=== PATIENT | female | born 1935 | race Two or more races ===

== ENCOUNTER 2024-03-01 11:45 | Inpatient (IN) | payer MEDICARE, MEDICAID ==
[~2024-03-01] VITALS: Ht 157.5 cm; Wt 56.3 kg
--- NOTE | 2024-03-01 12:53 | ED.PDOC ---
Pamela. trauma (HPI) HPI Comments 88 y.o female presents to the ED via EMS for a chief complaint of right sided hip pain s/p fall today. Patient reports she was getting up from bed to use the restroom, lost her balance and fell on her buttocks. Caregiver at [facility] reports hearing a loud noise in patient's room, saw her sitting on the floor and assisted her back up onto her walker. Patient was able to ambulate with that walker, dressed herself up and went to wash her hands when pain came on sudden. Caregiver emphasizes that no pain was reported when assisting patient up. Patient denies any allergies Vitals BP: 165/80 HR: 50 Temp: 97.8 F SPO2: 95% RA RR: 18 Past medical history: Dementia, anxiety, HTN, and skin cancer Past surgical history: Right hip replacement on July 2023 HPI: Poor Historian. REVIEW OF SYSTEMS: CONSTITUTIONAL: Denies acute: fever, diaphoresis, chills, generalized weakness. HEAD: Denies acute: headache, photophobia Eyes: Denies acute: Double vision, vision loss, eye pain, eye discharge. EARS: Denies acute: tinnitus, hearing loss, ear discharge, ear pain, THROAT: Denies acute: sore throat, swelling, difficulty swallowing , pain with swallowing, change in voice. NECK: Denies acute: neck pain, neck swelling, stiff neck. HEART: Denies acute : chest pain, palpitations, LUNGS: Denies acute: SOB, wheezing, cough, hemoptysis ABDOMEN: Denies acute: abdominal pain, Nausea, Vomiting, diarrhea, melena , hematemesis, hematochezia SKIN: Denies acute: rash, redness, lesions, itchiness. EXTREMITIES: Denies acute: calf pain, numbness, tingling, weakness, Denies acute: Low back pain. Neuro: Denies acute: focal neurological deficit, motor or sensory focal neurological deficit, tremors, seizure like activity, confusion, dizziness, change in mental status, loss of bowel or bladder function, cauda equina like symptoms. History of dementia : Denies acute: dysuria, hematuria, flank pain, increase in urinary frequency. PSYCH: Denies acute: hallucination, suicidal ideation, homicidal ideation. FEMALE: Denies acute: abnormal vaginal bleeding, foul odor, unusual discharge. PHYSICAL EXAM: General: Moderate acute distress, awake and alert. Head: normocephalic, atraumatic. Neck: supple, trachea is midline, no swelling. Throat: Normal phonation. Eyes:, no erythema, no purulent discharge, no proptosis, no icterus. Heart: regular bradycardia, no significant murmur appreciated. Lungs: no apparent respiratory distress, Able to speak in full sentences. No wheezing, no rhonchi, no crackles. No stridors Clear to auscultation bilaterally. Abdomen: non tender to palpation, non distended, soft, no guarding, no rebound, + bowel sounds. Neuro: Awake, Alert, oriented to name, self, situation, follows commands GCS=15. Speech is normal. Skin: no petechia, no purpura, no cyanosis, non-pale, not jaundice. Lower extremities: --trace - Pitting edema no deformity, no focal swelling, no calf TTP. Decreased range of motion of right lower extremity secondary to right hip pain. Makes eye contact. moves all four extremities. Face: no apparent facial droop. Chief Complaint: Lower Extremity Time Seen by MD: 12:34 Reviewed notes: Nurses Notes, Allergies Allergies: Coded Allergies: NO KNOWN ALLERGIES (Unverified , 03/01/24) Information Source: Patient, Relative Mode of Arrival: EMS Past Medical History PAST MEDICAL HISTORY: Anxiety, Cancer (SKIN ), Dementia, HTN Surgical History (Other): Right hip replacement [employer] History: No Pertinent [employer] History Family History Family History: Reviewed,noncontributory to illness Social History Smoker: Non-Smoker Alcohol: Denies ETOH Use Drugs: Denies Drug Use Lives In: Home Was a procedure done? Was a procedure done?: No Differential Diagnosis Multiple Trauma: Fractures, Contusion, Hematoma Neck Injury: Spinal Cord Injury X-Ray, Labs, Meds, VS Vital Signs Date Time Temp Pulse Resp B/P (MAP) Pulse Ox O2 Delivery O2 Flow Rate FiO2 03/01/24 15:30 67 13 93 Room Air* 0 03/01/24 15:30 67 13 161/68 (99) 03/01/24 15:08 180/76 03/01/24 13:01 184/88 03/01/24 12:47 Room Air* 0 03/01/24 12:47 67 22 184/88 (120) 03/01/24 11:50 97.8 50 18 165/80 (108) 95 03/01/24 11:45 68 Lab Test 03/01/24 14:36 03/01/24 13:12 Range/Units Troponin I High Sensitivity 5 5 </=34 ng/L White Blood Count 12.2 H 4.4-10.8 10^3/uL Red Blood Count 4.73 4.0-5.20 10^6/uL Hemoglobin 14.7 12.2-16.2 g/dL Hematocrit 43.5 36.0-46.0 % Mean Corpuscular Volume 92.1 80.0-100.0 fL Mean Corpuscular Hemoglobin 31.0 28.0-32.0 pg Mean Corpuscular Hemoglobin Concent 33.7 32.0-36.0 g/dL Red Cell Distribution Width 13.3 11.8-14.3 % Platelet Count 229 140-450 10^3/uL Mean Platelet Volume 9.0 6.9-10.8 fL Neutrophils (%) (Auto) 81.2 H 37.0-80.0 % Lymphocytes (%) (Auto) 12.6 10.0-50.0 % Monocytes (%) (Auto) 5.5 0.0-12.0 % Eosinophils (%) (Auto) 0.4 0.0-7.0 % Basophils (%) (Auto) 0.3 0.0-2.0 % Neutrophils # (Auto) 9.9 H 1.6-8.6 10 ^3/uL Lymphocytes # (Auto) 1.5 0.4-5.4 10 ^3/uL Monocytes # (Auto) 0.7 0-1.3 10 ^3/uL Eosinophils # (Auto) 0 0-0.8 10 ^3/uL Basophils # (Auto) 0 0-0.2 10 ^3/uL Nucleated Red Blood Cells 0.0 % Sodium Level 138 136-145 mmol/L Potassium Level 4.0 3.5-5.1 mmol/L Chloride Level 107 98-107 mmol/L Carbon Dioxide Level 23 20-31 mmol/L Anion Gap 8 5-15 Blood Urea Nitrogen 16 9-23 mg/dL Creatinine 1.05 H 0.550-1.02 mg/dL Glomerular Filtration Rate Calc 51 >90 mL/min BUN/Creatinine Ratio 15.2 10.0-20.0 Serum Glucose 115 H 74-106 mg/dL Calcium Level 9.5 8.7-10.4 mg/dL Total Bilirubin 0.4 0.2-1.0 mg/dL Aspartate Amino Transferase (AST) 17 13-40 U/L Alanine Aminotransferase (ALT) 15 7-40 U/L Alkaline Phosphatase 107 46-116 U/L Total Protein 6.6 5.7-8.2 g/dL Albumin 4.2 3.2-4.8 g/dL Current Medications Medications (Trade) Dose Ordered Sig/Devorah Route Start Time Stop Time Status Last Admin Fentanyl Citrate 100 mcg ONCE ONCE IV 03/01/24 12:45 03/01/24 12:46 DC 03/01/24 13:01 Sodium Chloride 1,000 ml @ 1,000 mls/hr Q1H ONCE IV 03/01/24 12:45 03/01/24 13:44 DC 03/01/24 12:55 Fentanyl Citrate 100 mcg ONCE ONCE IV 03/01/24 15:00 03/01/24 15:01 DC 03/01/24 15:08 [place] [address] Ph: [phone] DIAGNOSTIC IMAGING Diagnostic Imaging Report : [id number] Signed PATIENT: ZHANNA LONG ACCT: [id number] UNIT: [id number] : 1935 LOC: ER ROOM / BED: / AGE / SEX: 88 / F ADM STATUS: REG ER SERVICE 1237 ORDERING PHYSICIAN: SUKHJINDER GRIFFITH DO PROCEDURE(s): ABPL - CT AB PEL WO CON-NO ORAL OR IV REASON: fall/hip pain ORDER NUMBER(s): [id number], ACCESSION NUMBER(s): [id number] CT ABDOMEN AND PELVIS WITHOUT CONTRAST CLINICAL HISTORY: fall/hip pain TECHNIQUE: Multiple contiguous axial images of the abdomen and pelvis without intravenous contrast. The images were reformatted degenerate coronal and sagittal reconstructions. All CT scans at this medical facility are performed using dose modulation techniques as appropriate to a performed exam including the following:Automated exposure control was utilized; adjustment of the MA and/or KV according to patient size; and use of iterative reconstruction technique. Comparison: None FINDINGS: Evaluation of the abdomen and pelvis is limited without intravenous contrast. There are small bilateral renal cysts. There is no evidence of nephrolithiasis or hydronephrosis. The liver, gallbladder, pancreas, adrenal glands, and spleen appear within normal limits. There is no gross evidence of abdominal lymphadenopathy. There is no free fluid or free air. There is a moderate size hiatal hernia. The small and large bowel loops demonstrate normal caliber. There are scattered diverticula in the colon without evidence of acute diverticulitis. The abdominal aorta and IVC appear within normal limits. Evaluation of the pelvis is limited secondary to streak artifact from hardware in the right femur. Visualized bladder appears unremarkable for the degree of distention. Pelvic organ grossly appears within normal limits. There is no gross evidence of a pelvic mass. There is no free fluid collection. There is mild scars. There is cardiomegaly. The osseous structures are demineralized. There is no acute osseous abnormality. IMPRESSION: 1. There is no acute process in the abdomen and pelvis. 2. Moderate size hiatal hernia. 3. Small bilateral renal cysts. HS:Y ATED BY: CHANO JEFFRIES MD DICTATED DATE/TIME: 03/01/241429 SIGNED BY: CHANO JEFFRIES MD SIGNED DATE/TIME: 03/01/24 143 CC: [place] [address] Ph: [phone] DIAGNOSTIC IMAGING Diagnostic Imaging Report : [id number] Signed PATIENT: ZHANNA LONG ACCT: [id number] UNIT: [id number] : 1935 LOC: ER ROOM / BED: / AGE / SEX: 88 / F ADM STATUS: REG ER SERVICE 1349 ORDERING PHYSICIAN: SUKHJINDER GRIFFITH DO PROCEDURE(s): CXR1 - CHEST XRAY 1 VIEW REASON: FALL ORDER NUMBER(s): [id number], ACCESSION NUMBER(s): [id number] CHEST RADIOGRAPH Indication: fall, pain Technique: Single frontal view of the chest was obtained COMPARISON: None FINDINGS: Lines and Tubes: None Lungs: Mild congestion. Pleura: No effusion. No pneumothorax. Cardiomediastinal contours: Unremarkable Bones: Age indeterminate nondisplaced fracture of the right posterior 7th rib. IMPRESSION: Mild congestion. Age indeterminate nondisplaced fracture of the right posterior 7th rib. RSMAN DICTATED BY: BRADEN STUART MD DICTATED DATE/TIME: 03/01/24 1521 SIGNED BY: BRADEN STUART MD SIGNED DATE/TIME: 03/01/24 3508 CC: Time of 1ST Reevaluation: 12:45 Reevaluation 1ST: Unchanged Patient Education/Counseling: Diagnosis, Treatment Family Education/Counseling: Diagnosis, Treatment Comments Patient presented with the above HPI.---fall/right hip pain---workup was initiated. patient was found with the above mentioned diagnosis. Patient was given: Fentanyl for pain control. Patient ED course and VS have been stabilized. Patient has been reassessed in the ED and remained in a stable condition. Pertinent incidental findings were discussed with the patient and/or family. Patient had no head or neck injury. She landed directly on her buttock. No loss of consciousness. Patient is not on blood thinners. Patient/family voices understanding and is agreeable with plan. Patient has been observed in the ED adequate length of time to insure improvement/stability. Patient has been unable to ambulate due to pain. No apparent acute fractures appreciated on imaging studies today. patient was admitted to the medicine team for further evaluation and treatment of their presentation. All the reports of any imaging studies that were ordered by myself were reviewed by myself. Departure 1 Departure Time of Disposition: 13:45 Impression: Primary Impression: Right hip pain Additional Impression: Unable to ambulate Disposition: ADMITTED INPATIENT Condition: Guarded Discharged With: Self Critical Care Note Critical Care Time?: No I personally scribed for SUKHJINDER GRIFFITH DO ([email or web address]) on 03/01/24 at 12:53. Electronically submitted by Katelyn Calzada ([facility]). I personally scribed for SUKHJINDER GRIFFITH DO ([email or web address]) on 03/01/24 at 13:56. Electronically submitted by Katelyn Calzada ([facility]). I personally scribed for SUKHJINDER GRIFFITH DO ([email or web address]) on 03/01/24 at 14:39. Electronically submitted by Katelyn Calzada ([facility]). I personally scribed for SUKHJINDER GRIFFITH DO ([email or web address]) on 03/01/24 at 16:39. Electronically submitted by Katelyn Calzada ([facility]). SUKHJINDER GRIFFITH DO Mar 01, 2024 12:53
[2024-03-01] MEDS: SODIUM CHLORIDE 0.9% 1,000 ML IV ONE (12:55)
[2024-03-01] MEDS: fentaNYL CITRATE 100 MCG/2 ML VL IV ONE ×2 (13:01→15:08)
--- NOTE | 2024-03-01 13:23 | DVH ---
CHEST RADIOGRAPH Indication: fall, pain Technique: Single frontal view of the chest was obtained COMPARISON: None FINDINGS: Lines and Tubes: None Lungs: Mild congestion. Pleura: No effusion. No pneumothorax. Cardiomediastinal contours: Unremarkable Bones: Age indeterminate nondisplaced fracture of the right posterior 7th rib. IMPRESSION: Mild congestion. Age indeterminate nondisplaced fracture of the right posterior 7th rib.
[2024-03-01 13:34] LABS: Basophils # (auto) 0 10 ^3/uL (0-0.2); Basophils % (auto) 0.3 % (0.0-2.0); Eosinophils # (auto) 0 10 ^3/uL (0-0.8); Eosinophils % (auto) 0.4 % (0.0-7.0); Hematocrit 43.5 % (36.0-46.0); Hemoglobin 14.7 g/dL (12.2-16.2); Lymphocytes # (auto) 1.5 10 ^3/uL (0.4-5.4); Lymphocytes % (auto) 12.6 % (10.0-50.0); Mean Corpuscular Hgb Conc. 33.7 g/dL (32.0-36.0); Mean Corpuscular Volume 92.1 fL (80.0-100.0); Monocytes # (auto) 0.7 10 ^3/uL (0-1.3); Monocytes % (auto) 5.5 % (0.0-12.0); Neutrophils # (auto) 9.9 10 ^3/uL (1.6-8.6); Neutrophils % (auto) 81.2 % (37.0-80.0); Platelet Count (auto) 229 10^3/uL (140-450); Red Blood Cells 4.73 10^6/uL (4.0-5.20); Red Cell Distribution Width 13.3 % (11.8-14.3); White Blood Cell 12.2 10^3/uL (4.4-10.8)
[2024-03-01 13:51] LABS: Alanine Aminotransferase 15 U/L (7-40); Albumin 4.2 g/dL (3.2-4.8); Alkaline Phosphatase 107 U/L (46-116); Anion Gap 8 (5-15); Aspartate Aminotransferase 17 U/L (13-40); BUN/Creatinine Ratio 15.2 (10.0-20.0); Bilirubin, Total 0.4 mg/dL (0.2-1.0); Blood Urea Nitrogen 16 mg/dL (9-23); Calcium 9.5 mg/dL (8.7-10.4); Carbon Dioxide 23 mmol/L (20-31); Chloride 107 mmol/L (98-107); Glucose 115 mg/dL (74-106); Sodium 138 mmol/L (136-145)
[2024-03-01 13:52] LABS: Total Protein 6.6 g/dL (5.7-8.2)
--- NOTE | 2024-03-01 13:55 | DVH ---
CHEST RADIOGRAPH Indication: fall, pain Technique: Single frontal view of the chest was obtained COMPARISON: None FINDINGS: Lines and Tubes: None Lungs: Mild congestion. Pleura: No effusion. No pneumothorax. Cardiomediastinal contours: Unremarkable Bones: Age indeterminate nondisplaced fracture of the right posterior 7th rib. IMPRESSION: Mild congestion. Age indeterminate nondisplaced fracture of the right posterior 7th rib. LOADER SOLE
--- NOTE | 2024-03-01 14:31 | DVH ---
CT ABDOMEN AND PELVIS WITHOUT CONTRAST CLINICAL HISTORY: fall/hip pain TECHNIQUE: Multiple contiguous axial images of the abdomen and pelvis without intravenous contrast. The images were reformatted degenerate coronal and sagittal reconstructions. All CT scans at this medical facility are performed using dose modulation techniques as appropriate t o a performed exam including the following:Automated exposure control was utilized; adjustment of the MA and/or KV according to patient size; and use of iterative reconstruction technique. Comparison: None FINDINGS: Evaluation of the abdomen and pelvis is limited without intravenous contrast. There are small bilateral renal cysts. There is no evidence of nephrolithiasis or hydronephrosis. Th e liver, gallbladder, pancreas, adrenal glands, and spleen appear within normal limits. There is no gross evidence of abdominal lymphadenopathy. There is no free fluid or free air. There is a moderate size hiatal hernia. The small and large bowel loops demonstrate normal caliber. There are scattered diverticula in the colon without evidence of acute diverticulitis. The abdominal aorta and IVC appear within normal limits. Evaluation of the pelvis is limited secondary to streak artifact from hardware in the right femur. Vi sualized bladder appears unremarkable for the degree of distention. Pelvic organ grossly appears with in normal limits. There is no gross evidence of a pelvic mass. There is no free fluid collection. There is mild scars. There is cardiomegaly. The osseous structures are demineralized. There is no acute osseous abnormality. IMPRESSION: 1. There is no acute process in the abdomen and pelvis. 2. Moderate size hiatal hernia. 3. Small bilateral renal cysts. HS:Y
[2024-03-01 15:30] VITALS: PULSE 67; RESP 13; O2SAT 93
[2024-03-01] MEDS ORDERED: MAALOX PLUS or MAALOX 30 ML PO PRN (16:45)
--- NOTE | 2024-03-01 16:57 | DVHHP2 ---
History of Present Illness Reason for Visit: stated mechanical fall History of Present Illness 88 yo recommended for admission after having a fall at home patient was evaluated in the ed as a trauma based on age trauma work up no acute findings patient was recommended for admission by the ed for possible weakness or further evaluation of fall if not mechanical Cardiovascular: HTN Review of Systems Constitutional: No: Fever, Chills, Sweats, Weakness, Malaise, Other Eyes: No: Pain, Vision change, Conjunctivae inflammation, Eyelid inflammation, Other, Redness ENT: No: Ear pain, Ear discharge, Nose pain, Nose discharge, Nose congestion, Mouth pain, Mouth swelling, Throat pain, Throat swelling, Other Respiratory: No: Cough, Dry, Shortness of breath, SOB with excertion, Wheezing, Hemoptysis, Pleuritic Pain, Sputum, Wheezing, Other Cardiovascular: No: Chest Pain, Palpitations, Orthopnea, Paroxysmal Noc. Dyspnea, Edema, Lt Headedness, Other Gastrointestinal: No: Nausea, Vomiting, Abdominal Pain, Diarrhea, Constipation, Melena, Hematochezia, Other Genitourinary: No Dysuria, No Frequency, No Incontinence, No Hematuria, No Retention, No Other Musculoskeletal: leg pain; No: other, neck pain, shoulder pain, arm pain, back pain, hand pain, foot pain Skin: No: Rash, Lesions, Jaundice, Bruising, Other Neurological: No: Weakness, Numbness, Incoordination, Change in speech, Confusion, Seizures, Other Allergies: Coded Allergies: NO KNOWN ALLERGIES (Unverified , 03/01/24) Exam Vital Signs Vital Signs Date Time Temp Pulse Resp B/P (MAP) Pulse Ox O2 Delivery O2 Flow Rate FiO2 03/01/24 15:30 67 13 93 Room Air* 0 21 03/01/24 15:30 161/68 (99) 03/01/24 11:50 97.8 General Appearance: Alert, Oriented X3 HEENT: Atraumatic, PERRLA Respiratory: Clear to auscultation, Normal air movement Cardiovascular: Regular rate, Normal S1, Normal S2 Abdominal: Normal bowel sounds, Soft, No tenderness Extremities: No clubbing, No cyanosis, No edema Skin: No breakdown, No significant lesion Neuro: Normal gait, Normal speech Psych/Mental Status: Mood NL Labs/Xrays Labs Test 03/01/24 14:36 11/22/24 13:12 Range/Units Troponin I High Sensitivity 5 </=34 ng/L White Blood Count 12.2 H 4.4-10.8 10^3/uL Red Blood Count 4.73 4.0-5.20 10^6/uL Hemoglobin 14.7 12.2-16.2 g/dL Hematocrit 43.5 36.0-46.0 % Mean Corpuscular Volume 92.1 80.0-100.0 fL Mean Corpuscular Hemoglobin 31.0 28.0-32.0 pg Mean Corpuscular Hemoglobin Concent 33.7 32.0-36.0 g/dL Red Cell Distribution Width 13.3 11.8-14.3 % Platelet Count 229 140-450 10^3/uL Mean Platelet Volume 9.0 6.9-10.8 fL Neutrophils (%) (Auto) 81.2 H 37.0-80.0 % Lymphocytes (%) (Auto) 12.6 10.0-50.0 % Monocytes (%) (Auto) 5.5 0.0-12.0 % Eosinophils (%) (Auto) 0.4 0.0-7.0 % Basophils (%) (Auto) 0.3 0.0-2.0 % Neutrophils # (Auto) 9.9 H 1.6-8.6 10 ^3/uL Lymphocytes # (Auto) 1.5 0.4-5.4 10 ^3/uL Monocytes # (Auto) 0.7 0-1.3 10 ^3/uL Eosinophils # (Auto) 0 0-0.8 10 ^3/uL Basophils # (Auto) 0 0-0.2 10 ^3/uL Nucleated Red Blood Cells 0.0 % Sodium Level 138 136-145 mmol/L Potassium Level 4.0 3.5-5.1 mmol/L Chloride Level 107 98-107 mmol/L Carbon Dioxide Level 23 20-31 mmol/L Anion Gap 8 5-15 Blood Urea Nitrogen 16 9-23 mg/dL Creatinine 1.05 H 0.550-1.02 mg/dL Glomerular Filtration Rate Calc 51 >90 mL/min BUN/Creatinine Ratio 15.2 10.0-20.0 Serum Glucose 115 H 74-106 mg/dL Calcium Level 9.5 8.7-10.4 mg/dL Total Bilirubin 0.4 0.2-1.0 mg/dL Aspartate Amino Transferase (AST) 17 13-40 U/L Alanine Aminotransferase (ALT) 15 7-40 U/L Alkaline Phosphatase 107 46-116 U/L Total Protein 6.6 5.7-8.2 g/dL Albumin 4.2 3.2-4.8 g/dL Assessment/Plan Assessment/Plan Admit Tele Mechanical Fal Stated hip pain trauma evaluation negative no acute signs of fracture pain meds given in the ED patient jose in the ed possible secondary to medication recommendation monitoring fentaly held CT pelvis no acute fracture Plan discussed with: Patient My Orders Orders - LONNIE CAAL MD Procedure Category Date Status Time Admit ADMIT 03/01/24 Transmitted 16:33 Code Status CODE 03/01/24 Transmitted 16:33 Vital Signs [facility] 03/01/24 Transmitted 16:33 Review Orders With [facility] 03/01/24 Transmitted Adm.Md 16:33 Regular Diet DIET 03/01/24 Transmitted Dinner Alum & Mag PHA 03/01/24 Transmitted Hydrox-Simethicone 16:45 Docusate Sodium PHA 03/01/24 Transmitted Capsule (Colace 16:45 Acetaminophen Tablet PHA 03/01/24 Transmitted (Tylenol Tablet) 16:45 Notify Md Of Changes [facility] 03/01/24 Transmitted From Base 16:33 Advance Directive [facility] 03/01/24 Transmitted 16:33 Basic Metabolic Panel LAB 03/02/24 Verified 04:00 Complete Blood Count LAB 03/02/24 Verified 04:00 Patient Condition ORDERS 03/01/24 Transmitted 16:33 Allergies [facility] 03/01/24 Transmitted 16:33 Hydrocodone-Acet PHA 03/01/24 Transmitted 5/325mg Tab (Goff 16:45 Ondansetron Hcl PHA 03/01/24 Transmitted (Zofran) 16:45 Morphine 2mg Iv Q4hprn PHA 03/01/24 Transmitted 16:45 Oxygen By Nasal RT 03/01/24 Transmitted Cannula 16:33 Notify Md Of Changes [facility] 03/01/24 Transmitted From Base 16:33 Blade Aligner For [facility] 03/01/24 Transmitted 24 Hours 16:33 Problem List: (1) Right hip pain Date of Service: Mar 01, 2024 Billing Provider: LONNIE CAAL MD Common Visit Codes: [id number] INP/OBS CARE (MOD) LONNIE CAAL MD Mar 01, 2024 16:57
[2024-03-01] MEDS: ONDANSETRON HCL 4 MG/2 ML VIAL IV PRN (17:27)
[2024-03-01] MEDS: MORPHINE SULFATE INJ 2 MG/ml SYRG IV PRN (17:28)
[2024-03-01 19:20] VITALS: PULSE 70; RESP 14; O2SAT 93
[2024-03-01] MEDS: ACETAMINOPHEN 325 MG TAB PO PRN (19:59)
[2024-03-01] MEDS: HYDROcodone-ACET 5/325MG TAB PO PRN (19:59)
[2024-03-01 22:34] VITALS: BP 154/47; PULSE 57; RESP 13; TEMP 98; O2SAT 100
[2024-03-02] VITALS (7 sets, daily range): BP systolic 140–187; BP diastolic 66–78; PULSE 30–71; RESP 14–18; TEMP 97.7–99.1; O2SAT 94–97
[2024-03-02 06:04] LABS: Basophils # (auto) 0 10 ^3/uL (0-0.2); Basophils % (auto) 0.2 % (0.0-2.0); Eosinophils # (auto) 0.1 10 ^3/uL (0-0.8); Hematocrit 40.3 % (36.0-46.0); Hemoglobin 13.8 g/dL (12.2-16.2); Lymphocytes # (auto) 1.1 10 ^3/uL (0.4-5.4); Lymphocytes % (auto) 11.8 % (10.0-50.0); Mean Corpuscular Hemoglobin 31.4 pg (28.0-32.0); Mean Corpuscular Hgb Conc. 34.3 g/dL (32.0-36.0); Mean Corpuscular Volume 91.5 fL (80.0-100.0); Monocytes # (auto) 0.6 10 ^3/uL (0-1.3); Monocytes % (auto) 6.2 % (0.0-12.0); Neutrophils # (auto) 7.3 10 ^3/uL (1.6-8.6); Neutrophils % (auto) 80.8 % (37.0-80.0); Platelet Count (auto) 210 10^3/uL (140-450); Red Blood Cells 4.41 10^6/uL (4.0-5.20); Red Cell Distribution Width 12.7 % (11.8-14.3)
[2024-03-02 06:13] LABS: Chloride 106 mmol/L (98-107); Potassium 3.8 mmol/L (3.5-5.1); Sodium 137 mmol/L (136-145)
[2024-03-02 06:14] LABS: Anion Gap 9 (5-15); Calcium 9.2 mg/dL (8.7-10.4); Carbon Dioxide 22 mmol/L (20-31)
[2024-03-02 06:19] LABS: BUN/Creatinine Ratio 16.7 (10.0-20.0); Blood Urea Nitrogen 14 mg/dL (9-23); Glucose 122 mg/dL (74-106)
--- NOTE | 2024-03-02 13:42 | DVHPN2 ---
Subjective 88-year-old female fell at home and therefore she came to the emergency room Evaluation here showed a fracture in the right 9th rib but no other injuries Changes from previous H/P or p: Changes Eyes: No Pain, No Vision change, No Conjunctivae inflammation, No Eyelid inflammation, No Other, No Redness ENT: No Ear pain, No Ear discharge, No Nose pain, No Nose discharge, No Nose congestion, No Mouth pain, No Mouth swelling, No Throat pain, No Throat swelling, No Other Cardiovascular: No Chest Pain, No Palpitations, No Orthopnea, No Paroxysmal Noc. Dyspnea, No Edema, No Lt Headedness, No Other Respiratory: No Cough, No Dry, No Shortness of breath, No SOB with excertion, No Wheezing, No Hemoptysis, No Pleuritic Pain, No Sputum, No Other Gastrointestinal: No Nausea, No Vomiting, No Abdominal Pain, No Diarrhea, No Constipation, No Melena, No Hematochezia, No Other Genitourinary: No Dysuria, No Frequency, No Incontinence, No Hematuria, No Retention, No Other Musculoskeletal: No other, No neck pain, No shoulder pain, No arm pain, No back pain, No hand pain; leg pain; No foot pain Skin: No Rash, No Lesions, No Jaundice, No Bruising, No Other Objective Vitals Vital Signs Date Time Temp Pulse Resp B/P (MAP) Pulse Ox O2 Delivery O2 Flow Rate FiO2 03/02/24 13:00 97.7 60 16 175/76 (109) 97 97.7 03/01/24 22:34 Nasal Cannula* 2 28 Intake/Output Intake and Output 03/02/24 07:00 Intake Total 100 ml Output Total 0 ml Balance 100 ml Intake Oral 100 ml Output Urine Total 0 ml Stool Total 0 ml General Appearance: Alert Lungs: Clear to auscultation, Normal air movement Cardiovascular: Regular rate, Normal S1, Normal S2, No murmurs Abdomen: Normal bowel sounds, Soft, No tenderness Extremities: No edema Medications Current Medications Medications Dose Ordered Sig/Devorah Route Start Time Stop Time Status Last Admin Dose Admin Al Hydrox/Mg Hydrox/Simethicone 30 ml Q6HP PRN PO 03/01/24 16:45 Docusate Sodium 100 mg BIDPRN PRN PO 03/01/24 16:45 Acetaminophen 650 mg Q6HP PRN PO 03/01/24 16:45 03/01/24 19:59 650 MG Acetaminophen/ Hydrocodone Bitart 1 tab Q4HP PRN PO 03/01/24 16:45 03/02/24 04:26 1 TAB Ondansetron HCl 4 mg Q4HP PRN IV 03/01/24 16:45 03/01/24 21:35 4 MG Morphine Sulfate 2 mg Q4HPRN PRN IV 03/01/24 16:45 03/02/24 12:59 2 MG Laboratory Results Laboratory Tests 03/02/24 05:24 Chemistry Test 03/02/24 05:24 Calcium Level 9.2 mg/dL (8.7-10.4) Assessment/Plan Assessment/Plan Mechanical fall Fracture of the 9th right rib cage Dementia Hypertension Plan Pain control with morphine for severe pain and [place] for moderate pain Physical therapy evaluation P.r.n. IV hydralazine for blood pressure control Get the home medications Discussed with the son at the bedside Full code Advance directives discussed for 20 minutes Plan discussed with: Patient, Son My Orders Orders - GABBY CARTAGENA MD Procedure Category Date Status Time Pt Request For Service PT 03/02/24 Logged 13:37 Date of Service: Mar 02, 2024 Billing Provider: GABBY CARTAGENA MD Common Visit Codes: [id number] INP/OBS CARE(HIGH) Secondary Visit Codes: [id number] CARE PLAN 30 MINUTES GABBY CARTAGENA MD Mar 02, 2024 13:42
[2024-03-02] MEDS: hydrALAZINE HCL 25 MG TAB PO PRN (14:43)
[2024-03-02] MEDS ORDERED: AMLO1TAB22 PO (15:11)
[2024-03-02] MEDS ORDERED: LISI20TA56 PO (15:12)
[2024-03-02] MEDS ORDERED: OMEP-335 PO (15:12)
[2024-03-02] MEDS: amLODIPine BESYLATE 5 MG TAB PO ONE (16:20)
[2024-03-02] MEDS: LISINOPRIL 20 MG TAB PO ONE (16:21)
[2024-03-03] VITALS (9 sets, daily range): BP systolic 103–149; BP diastolic 51–83; PULSE 57–78; RESP 17–19; TEMP 97.8–98.1; O2SAT 90–95
[2024-03-03] MEDS: PANTOPRAZOLE 40 MG TAB PO SCH (05:31)
[2024-03-03] MEDS: LISINOPRIL 20 MG TAB PO SCH (10:16)
[2024-03-03] MEDS: amLODIPine BESYLATE 5 MG TAB PO SCH (10:16)
--- NOTE | 2024-03-03 16:57 | DVHPN2 ---
Subjective No new complaints Chest pain is better Changes from previous H/P or p: Changes Eyes: No Pain, No Vision change, No Conjunctivae inflammation, No Eyelid inflammation, No Other, No Redness ENT: No Ear pain, No Ear discharge, No Nose pain, No Nose discharge, No Nose congestion, No Mouth pain, No Mouth swelling, No Throat pain, No Throat swelling, No Other Cardiovascular: No Chest Pain, No Palpitations, No Orthopnea, No Paroxysmal Noc. Dyspnea, No Edema, No Lt Headedness, No Other Respiratory: No Cough, No Dry, No Shortness of breath, No SOB with excertion, No Wheezing, No Hemoptysis, No Pleuritic Pain, No Sputum, No Other Gastrointestinal: No Nausea, No Vomiting, No Abdominal Pain, No Diarrhea, No Constipation, No Melena, No Hematochezia, No Other Genitourinary: No Dysuria, No Frequency, No Incontinence, No Hematuria, No Retention, No Other Musculoskeletal: No other, No neck pain, No shoulder pain, No arm pain, No back pain, No hand pain; leg pain; No foot pain Skin: No Rash, No Lesions, No Jaundice, No Bruising, No Other Objective Vitals Vital Signs Date Time Temp Pulse Resp B/P (MAP) Pulse Ox O2 Delivery O2 Flow Rate FiO2 03/03/24 12:58 98.1 78 17 120/63 (82) 95 98.1 03/03/24 08:15 Nasal Cannula* 2 28 Intake/Output Intake and Output 03/03/24 07:00 Intake Total 886 ml Output Total 475 ml Balance 411 ml Intake Oral 886 ml Output Urine Total 475 ml # Voids 2 General Appearance: Alert Lungs: Clear to auscultation, Normal air movement Cardiovascular: Regular rate, Normal S1, Normal S2, No murmurs Abdomen: Normal bowel sounds, Soft, No tenderness Extremities: No edema Medications Current Medications Medications Dose Ordered Sig/Devorah Route Start Time Stop Time Status Last Admin Dose Admin Al Hydrox/Mg Hydrox/Simethicone 30 ml Q6HP PRN PO 03/01/24 16:45 Docusate Sodium 100 mg BIDPRN PRN PO 03/01/24 16:45 Acetaminophen 650 mg Q6HP PRN PO 03/01/24 16:45 03/01/24 19:59 650 MG Acetaminophen/ Hydrocodone Bitart 1 tab Q4HP PRN PO 03/01/24 16:45 03/03/24 12:50 1 TAB Ondansetron HCl 4 mg Q4HP PRN IV 03/01/24 16:45 03/01/24 21:35 4 MG Morphine Sulfate 2 mg Q4HPRN PRN IV 03/01/24 16:45 03/03/24 02:23 2 MG Hydralazine HCl 25 mg Q6HP PRN PO 03/02/24 13:45 03/02/24 14:43 25 MG Amlodipine Besylate 5 mg DAILY PO 03/03/24 10:00 03/03/24 10:16 5 MG Lisinopril 20 mg DAILY PO 03/03/24 10:00 03/03/24 10:16 20 MG Pantoprazole Sodium 40 mg DAILY@0600 PO 03/03/24 06:00 03/03/24 05:31 40 MG Laboratory Results Laboratory Tests 03/02/24 05:24 Assessment/Plan Assessment/Plan Mechanical fall Fracture of the 9th right rib cage Dementia Hypertension Plan 03/02/2024: Pain control with morphine for severe pain and [place] for moderate pain Physical therapy evaluation P.r.n. IV hydralazine for blood pressure control Get the home medications Discussed with the son at the bedside Full code Advance directives discussed for 20 minutes 03/03/2024: Continue current management and plan Physical therapy Discharge planning for tomorrow Discussed with the family at the bedside Plan discussed with: Patient, Son Date of Service: Mar 03, 2024 Billing Provider: GABBY CARTAGENA MD Common Visit Codes: [id number] INP/OBS CARE(HIGH) GABBY CARTAGENA MD Mar 03, 2024 16:57
[2024-03-04 01:00] VITALS: BP 130/41; PULSE 52; RESP 18; TEMP 97.8; O2SAT 94
[2024-03-04 05:00] VITALS: BP 134/51; PULSE 60; RESP 18; TEMP 98.3; O2SAT 93
[2024-03-04] MEDS: DOCUSATE SOD 100 MG CAP PO PRN (05:25)
[2024-03-04 08:00] VITALS: PULSE 52
[2024-03-04 08:31] VITALS: BP 155/54; PULSE 50; RESP 16; TEMP 98.2; O2SAT 94
[2024-03-04 12:56] VITALS: BP 113/42; PULSE 51; RESP 16; TEMP 98.6; O2SAT 93
--- NOTE | 2024-03-04 14:07 | ECG ---
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
[2024-03-04] MEDS ORDERED: HYDR-4902 PO (14:41)
--- NOTE | 2024-03-04 14:43 | DVHDS2 ---
Discharge Summary Date of Admission Mar 01, 2024 at 16:33 Date of Discharge: Mar 04, 2024 Labs/Diagnostic Data: Laboratory Results Test 03/02/24 05:24 03/01/24 14:36 03/01/24 13:12 White Blood Count 9.0 10^3/uL (4.4-10.8) Red Blood Count 4.41 10^6/uL (4.0-5.20) Hemoglobin 13.8 g/dL (12.2-16.2) Hematocrit 40.3 % (36.0-46.0) Mean Corpuscular Volume 91.5 fL (80.0-100.0) Mean Corpuscular Hemoglobin 31.4 pg (28.0-32.0) Mean Corpuscular Hemoglobin Concent 34.3 g/dL (32.0-36.0) Red Cell Distribution Width 12.7 % (11.8-14.3) Platelet Count 210 10^3/uL (140-450) Mean Platelet Volume 8.8 fL (6.9-10.8) Neutrophils (%) (Auto) 80.8 % (37.0-80.0) Lymphocytes (%) (Auto) 11.8 % (10.0-50.0) Monocytes (%) (Auto) 6.2 % (0.0-12.0) Eosinophils (%) (Auto) 1.0 % (0.0-7.0) Basophils (%) (Auto) 0.2 % (0.0-2.0) Neutrophils # (Auto) 7.3 10 ^3/uL (1.6-8.6) Lymphocytes # (Auto) 1.1 10 ^3/uL (0.4-5.4) Monocytes # (Auto) 0.6 10 ^3/uL (0-1.3) Eosinophils # (Auto) 0.1 10 ^3/uL (0-0.8) Basophils # (Auto) 0 10 ^3/uL (0-0.2) Nucleated Red Blood Cells 0.0 % Sodium Level 137 mmol/L (136-145) Potassium Level 3.8 mmol/L (3.5-5.1) Chloride Level 106 mmol/L (98-107) Carbon Dioxide Level 22 mmol/L (20-31) Anion Gap 9 (5-15) Blood Urea Nitrogen 14 mg/dL (9-23) Creatinine 0.84 mg/dL (0.550-1.02) Glomerular Filtration Rate Calc 66 mL/min (>90) BUN/Creatinine Ratio 16.7 (10.0-20.0) Serum Glucose 122 mg/dL (74-106) Calcium Level 9.2 mg/dL (8.7-10.4) Troponin I High Sensitivity 5 ng/L (</=34) Total Bilirubin 0.4 mg/dL (0.2-1.0) Aspartate Amino Transferase (AST) 17 U/L (13-40) Alanine Aminotransferase (ALT) 15 U/L (7-40) Alkaline Phosphatase 107 U/L (46-116) Total Protein 6.6 g/dL (5.7-8.2) Albumin 4.2 g/dL (3.2-4.8) Other Laboratory Tests 03/02/24 05:24 Brief Hx & Hospital Course: Final diagnoses: Mechanical fall Fracture of the 9th right rib cage Dementia Hypertension 88-year-old female fell and had a injury to the right side resulting in 9th rib fracture. She is having pain when she is taking deep breath and when she is moving Pain is controlled with [place] Patient is stable for discharge Physical therapy saw the patient she ambulated some with the assistance She has a walker at home Discharge with [place] p.r.n. for pain and follow up with PCP as soon as possible Resume the home medications Final Diagnosis/Problems List Mechanical fall Fracture of the 9th right rib cage Dementia Hypertension Discharge Disposition: Home Discharge Instruct/Medications Diet: Cardiac 2g Na,low cholest Activity: No Restrictions, As Tolerated Follow Up/Referral: PCP as soon as possible Medications: [place] 5/325 p.r.n. Resume the home medications Discharge Statement: "Patient was advised to return to the ER or call 911 if any headaches, dizziness, shortness of breath, chest pain, abdominal pain, bleeding, fevers, or worsening of medical condition. Patient was counseled about treatment plan, medications, possible side effects, patientverbalized understanding. All questions were answered to the best of my ability. This discharge took greater then 30 minutes in planning, reviewing documentation, counseling the patient, and discussing with other team members." ASSESSMENT ASSESSMENT Assessment Mechanical fall Fracture of the 9th right rib cage Dementia Hypertension GABBY CARTAGENA MD Mar 04, 2024 14:43
== END 2024-03-04 17:00 | disposition home health service (06) | DRG 144 ==
LOC: ER 11:45 → EDBD 11:45 → TELE 16:33 → TELE-WESTW 22:42
PROVIDERS: ADMIT Hospitalist; ATTEND Internal Medicine Geriatric Medicine
DX: S22.31XA Fracture of one rib, right side, initial encounter for closed fracture (principal); F03.90 Unspecified dementia, unspecified severity, without behavioral disturbance, psychotic disturbance, mood disturbance, and anxiety; I10 Essential (primary) hypertension; Z85.828 Personal history of other malignant neoplasm of skin; Z96.641 Presence of right artificial hip joint; W18.39XA Other fall on same level, initial encounter; Y93.89 Activity, other specified; Y92.098 Other place in other non-institutional residence as the place of occurrence of the external cause; Y99.8 Other external cause status
CPT/HCPCS: 36415; 71045; 74176; 80048; 80053; 84484; 85025; 93005; 96361; 96374; 96376; 97163; G0378; J2405

== ENCOUNTER 2024-03-06 14:05 | Inpatient (IN) | payer MEDICARE, MEDICAID ==
[~2024-03-06] VITALS: Ht 157.5 cm; Wt 57.1 kg
[~2024-03-06 14:05] MED LIST: AMLO1TAB22 PO; HYDR-4902 PO; LISI20TA56 PO; OMEP-335 PO
--- NOTE | 2024-03-06 14:18 | ED.PDOC ---
History of Present Illness HPI Comments 88-year-old female who comes in with chief complaint of right-sided rib pain as well as hip pain. The patient was actually seen approximately 2-3 days ago after suffering rib fractures on the right side. She is also complaining of some right hip pain which she suffered a hip fracture an unknown. Of time ago. She is now complaining of some right rib pain as well as some mild shortness for breath. There has been no fever or chills. The patient was oxygen saturation was 95% on room air. She did take [place] at home prior to arrival in the emergency department Chief Complaint: Lower Extremity Time Seen by MD: 14:08 Primary Care Provider: NONE Reviewed Notes: Nurses Notes, Medications, Allergies (No allergies to medications) Allergies: Coded Allergies: NO KNOWN ALLERGIES (Unverified , 03/01/24) Home Meds Active Scripts Hydrocodone-Acetaminophen (Hydrocodone Bitartrate/AC 5-325 mg) 1 Tab Tab, 1 TAB PO Q6HP PRN, #30 TAB Prov:GABBY CARTAGENA MD 03/04/24 Reported Medications Omeprazole (Omeprazole) 20 Mg Tab, 20 MG PO DAILY, TAB 03/02/24 Lisinopril (Lisinopril) 20 Mg Tab, 20 MG PO DAILY for 30 Days, MG 03/02/24 Amlodipine Besylate (Amlodipine Besylate) 5 Mg Tab, 5 MG PO DAILY for 30 Days, MG 03/02/24 Information Source: Patient Mode of Arrival: EMS Severity: Mild Timing: Days (Symptoms started two days ago) Duration: Since onset Prehospital treatment: None Location: Right rib pain as well as right hip pain Past Medical History PAST MEDICAL HISTORY: Anxiety, Cancer, Dementia, GERD, HTN Surgical History: Unknown 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 FIELD MAP 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 History Family History Family History: Reviewed,noncontributory to illness Social History Smoker: Non-Smoker Alcohol: Denies ETOH Use Drugs: Denies Drug Use Lives In: Home Constitutional: denies: chills, diaphoresis, fatigue, fever, malaise, sweats, weakness, others EENTM: denies: blurred vision, double vision, ear bleeding, ear discharge, ear drainage, ear pain, ear ringing, eye pain, eye redness, hearing loss, mouth pain, mouth swelling, nasal discharge, nose bleeding, nose congestion, nose pain, photophobia, tearing, throat pain, throat swelling, voice changes, others Respiratory: denies: cough, hemoptysis, orthopnea, SOB at rest, shortness of breath, SOB with excertion, stridor, wheezing, others Cardiovascular: reports: chest pain (Right-sided chest pain); denies: dizzy spells, diaphoresis, Dyspnea on exertion, edema, irregular heart beat, left arm pain, lightheadedness, palpitations, PND, syncope, others Gastrointestinal: denies: abdomen distended, abdominal pain, blood streaked bowels, constipated, diarrhea, dysphagia, difficulty swallowing, hematemesis, melena, nausea, poor appetite, poor fluid intake, rectal bleeding, rectal pain, vomiting, others Genitourinary: denies: abnormal vagina bleeding, burning, dyspareunia, dysuria, flank pain, frequency, hematuria, incontinence, pain, , vagina discharge, urgency, others Neurological: denies: dizziness, fainting, headache, left sided numbness, left sided weakness, numbness, paresthesia, pre-existing deficit, right sided numbness, right sided weakness, seizure, speech problems, tingling, tremors, weakness, others Musculoskeletal: reports: others (Right hip pain); denies: back pain, gout, joint pain, joint swelling, muscle pain, muscle stiffness, neck pain Integumetry: denies: bruises, change in color, change in hair/nails, dryness, laceration, lesions, lumps, rash, wounds, others Allergic/Immunocompromised: denies: Difficulty Healing, Frequent Infections, Hives, Itching, others Hematologic/Lymphatic: denies: anemia, blood clots, easy bleeding, easy bruising, swollen glands, others Endocrine: denies: excessive hunger, excessive sweating, excessive thirst, excessive urination, flushing, intolerance to cold, intolerance to heat, un explained weight gain, unexplained weight loss, others Psychiatric: denies: anxiety, bipolar disorder, depression, hopeless, panic disorder, schizophrenia, sleepless, suicidal, others Physical Exam General Appearance: Mild Distress HEENT: Normal ENT Inspection, Pharynx Normal, TMs Normal Neck: Full Range of Motion, Non-Tender, Normal, Normal Inspection Respiratory: Lungs Clear, No Accessory Muscle Use, No Respiratory Distress, Normal Breath Sounds, Other (Tenderness to the right chest) Cardiovascular: No Edema, No JVD, No Murmur, No Gallop, Normal Peripheral Pulses, Regular Rate/Rhythm Breast Exam: Deferred Gastrointestinal: No Organomegaly, Non Tender, No Pulsatile Mass, Normal Bowel Sounds, Soft Genitalia: Deferred Pelvic: Deferred Rectal: Deferred Extremities: No calf tenderness, Normal capillary refill, No pedal edema Musculoskeletal : Location: Right Extremity Location: Hip Apperance: Limited ROM, Tenderness: Mild 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 Was a procedure done?: No Differential Dx Considerations may include: Fracture, strain, contusion X-Ray, Labs, Meds, VS Vital Signs Date Time Temp Pulse Resp B/P (MAP) Pulse Ox O2 Delivery O2 Flow Rate FiO2 03/06/24 15:00 78 17 95 Room Air* 0 21 03/06/24 15:00 98.1 78 17 144/58 (86) 95 98.1 03/06/24 14:29 98.1 61 20 155/77 (103) 95 Lab Test 03/06/24 14:53 Range/Units White Blood Count 6.7 # 4.4-10.8 10^3/uL Red Blood Count 4.90 4.0-5.20 10^6/uL Hemoglobin 15.2 12.2-16.2 g/dL Hematocrit 45.3 # 36.0-46.0 % Mean Corpuscular Volume 92.4 80.0-100.0 fL Mean Corpuscular Hemoglobin 31.0 28.0-32.0 pg Mean Corpuscular Hemoglobin Concent 33.6 32.0-36.0 g/dL Red Cell Distribution Width 13.4 11.8-14.3 % Platelet Count 272 140-450 10^3/uL Mean Platelet Volume 8.5 6.9-10.8 fL Neutrophils (%) (Auto) 58.8 37.0-80.0 % Lymphocytes (%) (Auto) 27.7 10.0-50.0 % Monocytes (%) (Auto) 10.8 0.0-12.0 % Eosinophils (%) (Auto) 1.9 0.0-7.0 % Basophils (%) (Auto) 0.8 0.0-2.0 % Neutrophils # (Auto) 4.0 1.6-8.6 10 ^3/uL Lymphocytes # (Auto) 1.9 0.4-5.4 10 ^3/uL Monocytes # (Auto) 0.7 0-1.3 10 ^3/uL Eosinophils # (Auto) 0.1 0-0.8 10 ^3/uL Basophils # (Auto) 0.1 0-0.2 10 ^3/uL Nucleated Red Blood Cells 0.2 % Sodium Level 137 136-145 mmol/L Potassium Level 3.8 3.5-5.1 mmol/L Chloride Level 105 98-107 mmol/L Carbon Dioxide Level 25 20-31 mmol/L Anion Gap 7 5-15 Blood Urea Nitrogen 11 9-23 mg/dL Creatinine 0.91 0.550-1.02 mg/dL Glomerular Filtration Rate Calc 60 >90 mL/min BUN/Creatinine Ratio 12.1 10.0-20.0 Serum Glucose 111 H 74-106 mg/dL Calcium Level 9.6 8.7-10.4 mg/dL Right Hip X-Ray Impression: Patient is status post open reduction internal fixation of a proximal right femoral fracture bony alignment appears normal internal fixation device appears intact and normal alignment. The visualized joint space is well maintained. The alignment is anatomical. There is no radiopaque foreign body. Chest X-Ray Impression: No acute cardiopulmonary disease. IV Hep-Lock has been established The patient was given morphine 2 mg IV push for the pain The patient was being given Zofran 4 mg IV push The patient's CBC and chemistry panel are within normal limits The patient was being admitted to the hospitalist. Images Reviewed?: Images reviewed and evaluated by me Time of 1ST Reevaluation: 14:18 Reevaluation 1ST: Unchanged Patient Education/Counseling: Diagnosis, Treatment, Prognosis Family Education/Counseling: No Family Present Departure 1 Departure Time of Disposition: 14:18 Impression: Primary Impression: Right hip pain Additional Impressions: Right-sided chest pain Generalized weakness Disposition: 09 ADMITTED INPATIENT Admit to: Med Surg Condition: Fair Critical Care Note Critical Care Time?: No Stability Stability form required: Yes Unstable for transfer: ED Physician Assesment (Clinical assesment) Heart Score Heart Score: Heart Score Response (Comments) Value History N/A 0 EKG N/A 0 Age N/A 0 Risk Factors N/A 0 Troponin N/A 0 Total 0 I personally scribed for JOEY ARORA MD ([email or web address]) on 03/06/24 at 15:11. Electronically submitted by Malachi Packer ([email or web address]). I personally scribed for JOEY ARORA MD ([email or web address]) on 03/06/24 at 15:11. Electronically submitted by Malachi Packer ([email or web address]). JOEY ARORA MD Mar 06, 2024 14:18
[2024-03-06 15:00] VITALS: PULSE 78; RESP 17; O2SAT 95
--- NOTE | 2024-03-06 15:00 | DVH ---
CLINICAL INDICATION: TRAUMA TECHNIQUE: 3 radiographic views of the right hip were obtained. Comparison: None FINDINGS/IMPRESSION: Patient is status post open reduction internal fixation of a proximal right femoral fracture bony ali gnment appears normal internal fixation device appears intact and normal alignment. The visualized joint space is well maintained. The alignment is anatomical. There is no radiopaque foreign body.
[2024-03-06] MEDS: MORPHINE SULFATE INJ 2 MG/ml SYRG IV ONE (15:04)
[2024-03-06] MEDS: ONDANSETRON HCL 4 MG/2 ML VIAL IV ONE (15:04)
--- NOTE | 2024-03-06 15:05 | DVH ---
CHEST RADIOGRAPH Indication: PAIN Technique: Single frontal view of the chest was obtained Comparison: XY CHEST XRAY 1 VIEW on DOS: 03/01/24, XY CHEST XRAY 1 VIEW on DOS: 03/01/24 FINDINGS: Lines and Tubes: None Lungs: No focal consolidation. Pleura: No effusion. No pneumothorax. Cardiomediastinal contours: Mild cardiomegaly. Bones: No acute osseous abnormality. IMPRESSION: No acute cardiopulmonary disease.
[2024-03-06 15:16] LABS: Basophils # (auto) 0.1 10 ^3/uL (0-0.2); Basophils % (auto) 0.8 % (0.0-2.0); Eosinophils # (auto) 0.1 10 ^3/uL (0-0.8); Eosinophils % (auto) 1.9 % (0.0-7.0); Hematocrit 45.3 % (36.0-46.0); Hemoglobin 15.2 g/dL (12.2-16.2); Lymphocytes # (auto) 1.9 10 ^3/uL (0.4-5.4); Lymphocytes % (auto) 27.7 % (10.0-50.0); Mean Corpuscular Hgb Conc. 33.6 g/dL (32.0-36.0); Mean Corpuscular Volume 92.4 fL (80.0-100.0); Monocytes # (auto) 0.7 10 ^3/uL (0-1.3); Monocytes % (auto) 10.8 % (0.0-12.0); Neutrophils % (auto) 58.8 % (37.0-80.0); Nucleated Red Blood Cells % 0.2 %; Platelet Count (auto) 272 10^3/uL (140-450); Red Cell Distribution Width 13.4 % (11.8-14.3); White Blood Cell 6.7 10^3/uL (4.4-10.8)
[2024-03-06 15:20] LABS: Chloride 105 mmol/L (98-107); Potassium 3.8 mmol/L (3.5-5.1); Sodium 137 mmol/L (136-145)
[2024-03-06 15:21] LABS: Anion Gap 7 (5-15); Calcium 9.6 mg/dL (8.7-10.4); Carbon Dioxide 25 mmol/L (20-31)
[2024-03-06 15:27] LABS: BUN/Creatinine Ratio 12.1 (10.0-20.0); Blood Urea Nitrogen 11 mg/dL (9-23); Glucose 111 mg/dL (74-106)
--- NOTE | 2024-03-06 16:09 | DVHHP2 ---
History of Present Illness Reason for Visit: right rib and hip pain History of Present Illness Juliet Arenas is a 88YO F with pmHx of Aniety, Dementia, GERD, HTN, CKD, and a Right ORIF s/p mechanical fall hospitalized earlier this week. Upon examination patient is complaining of minimal pain. Patient denies fever, chills, chest pain, abdominal pain, and N/V/D. 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: Dementia GI: GERD Heme/Onc: Cancer Psych: Anxiety Past Surgical History right ORIF Family History: None Smoke: No ALCOHOL: none Drugs: None Domestic Violence: Neg Review of Systems Constitutional: No: Fever, Chills, Sweats, Weakness, Malaise, Other Eyes: No: Pain, Vision change, Conjunctivae inflammation, Eyelid inflammation, Other, Redness ENT: No: Ear pain, Ear discharge, Nose pain, Nose discharge, Nose congestion, Mouth pain, Mouth swelling, Throat pain, Throat swelling, Other Respiratory: No: Cough, Dry, Shortness of breath, SOB with excertion, Wheezing, Hemoptysis, Pleuritic Pain, Sputum, Wheezing, Other Cardiovascular: No: Chest Pain, Palpitations, Orthopnea, Paroxysmal Noc. Dyspnea, Edema, Lt Headedness, Other Gastrointestinal: No: Nausea, Vomiting, Abdominal Pain, Diarrhea, Constipation, Melena, Hematochezia, Other Genitourinary: No Dysuria, No Frequency, No Incontinence, No Hematuria, No Retention, No Other Musculoskeletal: other (right hip pain and right rib pain) Skin: No: Rash, Lesions, Jaundice, Other Neurological: No: Weakness, Numbness, Incoordination, Change in speech, Confusion, Seizures, Other Allergies: Coded Allergies: NO KNOWN ALLERGIES (Unverified , 03/01/24) Exam Vital Signs Vital Signs Date Time Temp Pulse Resp B/P (MAP) Pulse Ox O2 Delivery O2 Flow Rate FiO2 03/06/24 15:00 78 17 95 Room Air* 0 21 03/06/24 15:00 98.1 144/58 (86) 98.1 General Appearance: Alert, Cooperative, No acute distress HEENT: Atraumatic, PERRLA, EOMI, Mucous membr. moist/pink Respiratory: Clear to auscultation, Normal air movement Cardiovascular: Regular rate, Normal S1, Normal S2, No murmurs Abdominal: Normal bowel sounds, Soft, No tenderness, No hepatospenomegaly, No masses Extremities: No clubbing, No cyanosis, No edema, Normal pulses, No tenderness /swelling Skin: No rashes, No breakdown, No significant lesion Neuro: Normal speech, Normal tone, Sensation intact Psych/Mental Status: Mental status NL, Mood NL Labs/Xrays Labs Test 03/06/24 14:53 Range/Units White Blood Count 6.7 # 4.4-10.8 10^3/uL Red Blood Count 4.90 4.0-5.20 10^6/uL Hemoglobin 15.2 12.2-16.2 g/dL Hematocrit 45.3 # 36.0-46.0 % Mean Corpuscular Volume 92.4 80.0-100.0 fL Mean Corpuscular Hemoglobin 31.0 28.0-32.0 pg Mean Corpuscular Hemoglobin Concent 33.6 32.0-36.0 g/dL Red Cell Distribution Width 13.4 11.8-14.3 % Platelet Count 272 140-450 10^3/uL Mean Platelet Volume 8.5 6.9-10.8 fL Neutrophils (%) (Auto) 58.8 37.0-80.0 % Lymphocytes (%) (Auto) 27.7 10.0-50.0 % Monocytes (%) (Auto) 10.8 0.0-12.0 % Eosinophils (%) (Auto) 1.9 0.0-7.0 % Basophils (%) (Auto) 0.8 0.0-2.0 % Neutrophils # (Auto) 4.0 1.6-8.6 10 ^3/uL Lymphocytes # (Auto) 1.9 0.4-5.4 10 ^3/uL Monocytes # (Auto) 0.7 0-1.3 10 ^3/uL Eosinophils # (Auto) 0.1 0-0.8 10 ^3/uL Basophils # (Auto) 0.1 0-0.2 10 ^3/uL Nucleated Red Blood Cells 0.2 % Sodium Level 137 136-145 mmol/L Potassium Level 3.8 3.5-5.1 mmol/L Chloride Level 105 98-107 mmol/L Carbon Dioxide Level 25 20-31 mmol/L Anion Gap 7 5-15 Blood Urea Nitrogen 11 9-23 mg/dL Creatinine 0.91 0.550-1.02 mg/dL Glomerular Filtration Rate Calc 60 >90 mL/min BUN/Creatinine Ratio 12.1 10.0-20.0 Serum Glucose 111 H 74-106 mg/dL Calcium Level 9.6 8.7-10.4 mg/dL XR Hip TECHNIQUE: 3 radiographic views of the right hip were obtained. FINDINGS/IMPRESSION: Patient is status post open reduction internal fixation of a proximal right femoral fracture bony alignment appears normal internal fixation device appears intact and normal alignment. The visualized joint space is well maintained. The alignment is anatomical. There is no radiopaque foreign body. CHEST RADIOGRAPH Indication: PAIN FINDINGS: Lines and Tubes: None Lungs: No focal consolidation. Pleura: No effusion. No pneumothorax. Cardiomediastinal contours: Mild cardiomegaly. Bones: No acute osseous abnormality. IMPRESSION: No acute cardiopulmonary disease. Assessment/Plan Assessment/Plan Assessment: Right rib and pain s/p fall and R ORIF CKD Hx of Anxiety dementia GERD HTN Plan: Admit to med surg diet as tolerated pain management IVf Monitor labs PT eval Home medications reconciled Discussed plan of care with patient Plan discussed with: Patient Problem List: (1) Rib pain on right side (2) Right hip pain Date of Service: Mar 06, 2024 Billing Provider: NANCY HANKINS Common Visit Codes: [id number] INP/OBS CARE (MOD) NANCY HANKINS Mar 06, 2024 16:09
[2024-03-06] MEDS ORDERED: ACETAMINOPHEN 325 MG TAB PO PRN (16:45)
[2024-03-06] MEDS ORDERED: HALOPERIDOL LACTATE 5 MG/ML INJ VIAL IM PRN (19:00)
[2024-03-06 19:30] VITALS: RESP 16
[2024-03-06] MEDS: HALOPERIDOL LACTATE 5 MG/ML INJ VIAL IM ONE (20:29)
[2024-03-06] MEDS: HYDROcodone-ACET 5/325MG TAB PO PRN (20:29)
[2024-03-06] MEDS: SODIUM CHLORIDE 0.9% 1,000 ML IV SCH (20:55)
[2024-03-06 23:18] VITALS: BP 166/74; PULSE 57; RESP 18; RESP 22; TEMP 97.5; O2SAT 98
[2024-03-07] VITALS (7 sets, daily range): BP systolic 116–156; BP diastolic 47–74; PULSE 52–80; RESP 18; TEMP 98–98.6; O2SAT 95–97
[2024-03-07] MEDS: MORPHINE SULFATE INJ 2 MG/ml SYRG IV PRN (00:05)
[2024-03-07 07:11] LABS: Basophils # (auto) 0 10 ^3/uL (0-0.2); Basophils % (auto) 0.8 % (0.0-2.0); Eosinophils # (auto) 0.2 10 ^3/uL (0-0.8); Hematocrit 40.5 % (36.0-46.0); Hemoglobin 14.1 g/dL (12.2-16.2); Lymphocytes # (auto) 1.7 10 ^3/uL (0.4-5.4); Lymphocytes % (auto) 33.7 % (10.0-50.0); Mean Corpuscular Hgb Conc. 34.7 g/dL (32.0-36.0); Mean Corpuscular Volume 92.2 fL (80.0-100.0); Monocytes # (auto) 0.5 10 ^3/uL (0-1.3); Monocytes % (auto) 9.7 % (0.0-12.0); Neutrophils # (auto) 2.7 10 ^3/uL (1.6-8.6); Neutrophils % (auto) 52.8 % (37.0-80.0); Nucleated Red Blood Cells % 0.1 %; Platelet Count (auto) 241 10^3/uL (140-450); Red Cell Distribution Width 12.9 % (11.8-14.3); White Blood Cell 5.2 10^3/uL (4.4-10.8)
[2024-03-07 07:23] LABS: Alanine Aminotransferase 15 U/L (7-40); Albumin 3.9 g/dL (3.2-4.8); Alkaline Phosphatase 111 U/L (46-116); Anion Gap 8 (5-15); BUN/Creatinine Ratio 15.2 (10.0-20.0); Blood Urea Nitrogen 12 mg/dL (9-23); Calcium 9.3 mg/dL (8.7-10.4); Carbon Dioxide 25 mmol/L (20-31); Chloride 106 mmol/L (98-107); Glucose 98 mg/dL (74-106); Sodium 139 mmol/L (136-145)
[2024-03-07 07:24] LABS: Bilirubin, Total 0.4 mg/dL (0.2-1.0); Total Protein 6.1 g/dL (5.7-8.2)
[2024-03-07 07:29] LABS: Aspartate Aminotransferase 11 U/L (13-40)
[2024-03-07] MEDS: HYDROcodone-ACET 5/325MG TAB PO SCH (08:15)
[2024-03-07] MEDS ORDERED: ACETAMINOPHEN 325 MG TAB PO SCH (08:15)
[2024-03-07] MEDS: MULTIPLE VITAMIN TAB PO SCH (09:22)
[2024-03-07] MEDS: ZINC SULFATE 220mg CAP or TAB PO SCH (09:23)
[2024-03-07 10:27] LABS: Partial Thromboplastin Time 29.8 SEC (24.5-34.5); Prothrombin Time 10.6 sec (9.3-11.8)
--- NOTE | 2024-03-07 10:45 | DVHINCON2 ---
Date Seen: Mar 07, 2024 Referring Physician AMBER Wall Reason for Consultation Bradycardia 30s-40s History of Present Illness This is an 88-year-old female who presented to the emergency room with a chief complaint of right-sided rib pain. Family at bedside including sons and daughter in-law states the patient sustained a recent mechanical fall injury where she was diagnosed with a right posterior 7th rib fracture. Per family, the patient experiences pain when taking deep breaths or feeling agitated. Cardiology consulted in the setting of bradycardia in the 30s-40s bpm. Per family, the patient has a history of bradycardia in the past and followed up with Dr. Rivera undergoing an event monitor for 48 hours without abnormal findings. property assessment monitor reviewed revealing a sinus bradycardia rhythm at rest with no evidence of atrioventricular blocks. The patient is now awake interacting with family and eating breakfast with a heart rate in the 70s bpm. Significant medical history includes hypertension, dementia with sundowning syndrome, GERD, and hiatal hernia. Past Medical History Past medical history reviewed. No other significant than mentioned above. Past Surgical History Right ORIF Family History: Patient reports no known family medical history. Family History Family history reviewed. Social History Denies the use of illicit drugs, alcohol, or tobacco use. Allergies: Coded Allergies: NO KNOWN ALLERGIES (Unverified , 03/01/24) Home Meds Active Scripts Hydrocodone-Acetaminophen (Hydrocodone Bitartrate/AC 5-325 mg) 1 Tab Tab, 1 TAB PO Q6HP PRN, #30 TAB Prov:GABBY CARTAGENA MD 03/04/24 Reported Medications Omeprazole (Omeprazole) 20 Mg Tab, 20 MG PO DAILY, TAB 03/02/24 Lisinopril (Lisinopril) 20 Mg Tab, 20 MG PO DAILY for 30 Days, MG 03/02/24 Amlodipine Besylate (Amlodipine Besylate) 5 Mg Tab, 5 MG PO DAILY for 30 Days, MG 03/02/24 Home Meds Home medications reviewed. Current Medications Current Medications Medications (Trade) Dose Ordered Sig/Devorah Route PRN Reason Start Time Stop Time Status Last Admin Sodium Chloride 1,000 ml @ 60 mls/hr [id number] IV 03/06/24 16:45 03/07/24 08:10 DC Acetaminophen/ Hydrocodone Bitart ([place] 5/325MG Tab) 1 tab Q4HP PRN PO MODERATE PAIN (4-6 PAIN SCALE) 03/06/24 16:45 03/07/24 08:12 DC 03/07/24 07:00 Ondansetron HCl (Zofran) 4 mg Q4HP PRN IV NAUSEA / VOMITING 03/06/24 16:45 Docusate Sodium (Colace Capsule) 100 mg BIDPRN PRN PO FOR CONSTIPATION 03/06/24 16:45 Zinc Sulfate 220 mg DAILY PO 03/07/24 10:00 03/07/24 09:23 Multivitamins (Mvi Tab) 1 tab DAILY PO 03/07/24 10:00 03/07/24 09:22 Acetaminophen (Tylenol Tablet) 650 mg Q6HP PRN PO PAIN SCALE 1-3 OR TEMP>100.4 03/06/24 16:45 03/07/24 08:12 DC Morphine Sulfate 2 mg Q4HPRN PRN IV SEVERE PAIN (7-10 PAIN SCALE) 03/06/24 16:45 03/07/24 00:05 Haloperidol Lactate (Haldol) 5 mg Q8HP PRN IM AGITATION 03/06/24 19:00 Acetaminophen (Tylenol Tablet) 650 mg TID PO 03/07/24 08:15 03/07/24 08:17 DC Acetaminophen/ Hydrocodone Bitart ([place] 5/325MG Tab) 1 tab TID PO 03/07/24 08:15 Review of Systems Constitutional: No symptom reported Ears, Nose, & Throat: No symptom reported Eyes: No symptom reported Neurological: No symptoms reported Pulmonary/Respiratory: No symptom reported Cardiovascular: No symptom reported Gastrointestinal: No symptom reported Genitourinary: No symptom reported Musculoskeletal: Right rib pain Skin: No symptom reported Psychiatric: No symptom reported Endocrine: No symptom reported Hemotologic/Lymphatic: No symptom reported Vital Signs Vital Signs Date Time Temp Pulse Resp B/P (MAP) Pulse Ox O2 Delivery O2 Flow Rate FiO2 03/07/24 08:51 98.0 64 18 134/74 (94) 95 98.0 03/06/24 23:18 Nasal Cannula* 2 28 Physical Exam General Appearance: Confused. In no acute distress Head Exam: Normal inspection Neck Exam: Normal inspection. Non-tender. Normal alignment Pulmonary/Respiratory: Right-sided rib tenderness. Clear bilateral breath sounds Cardiovascular/Chest: Regular rate and rhythm. S1, S2. NSR. No murmurs. No JVD. Peripheral Pulses: 2+ Radial (R). 2+ Radial (L). 2+ Pedal (R). 2+ Pedal (L) Abdominal Exam: Normal bowel sounds. Soft. Nontender. No hepatospenomegaly. No masses Ankle Exam: Negative ankle edema Lower extremities: Negative lower extremity edema Neuro/Mental Status: A&O x2. Alert but confused Thoughts/Psych: Unable to assess at this time Appearance: In no acute distress Skin Exam: Normal inspection. Normal color. Warm. Dry Labs/Diagnostic Data Labs Test 03/07/24 09:39 03/07/24 06:10 Range/Units Prothrombin Time 10.6 9.3-11.8 sec Prothrombin Time INR 1.00 0.9-1.15 Activated Partial Thromboplast Time 29.8 24.5-34.5 SEC White Blood Count 5.2 4.4-10.8 10^3/uL Red Blood Count 4.40 4.0-5.20 10^6/uL Hemoglobin 14.1 12.2-16.2 g/dL Hematocrit 40.5 # 36.0-46.0 % Mean Corpuscular Volume 92.2 80.0-100.0 fL Mean Corpuscular Hemoglobin 32.0 28.0-32.0 pg Mean Corpuscular Hemoglobin Concent 34.7 32.0-36.0 g/dL Red Cell Distribution Width 12.9 11.8-14.3 % Platelet Count 241 140-450 10^3/uL Mean Platelet Volume 8.6 6.9-10.8 fL Neutrophils (%) (Auto) 52.8 37.0-80.0 % Lymphocytes (%) (Auto) 33.7 10.0-50.0 % Monocytes (%) (Auto) 9.7 0.0-12.0 % Eosinophils (%) (Auto) 3.0 0.0-7.0 % Basophils (%) (Auto) 0.8 0.0-2.0 % Neutrophils # (Auto) 2.7 1.6-8.6 10 ^3/uL Lymphocytes # (Auto) 1.7 0.4-5.4 10 ^3/uL Monocytes # (Auto) 0.5 0-1.3 10 ^3/uL Eosinophils # (Auto) 0.2 0-0.8 10 ^3/uL Basophils # (Auto) 0 0-0.2 10 ^3/uL Nucleated Red Blood Cells 0.1 % Sodium Level 139 136-145 mmol/L Potassium Level 4.0 3.5-5.1 mmol/L Chloride Level 106 98-107 mmol/L Carbon Dioxide Level 25 20-31 mmol/L Anion Gap 8 5-15 Blood Urea Nitrogen 12 9-23 mg/dL Creatinine 0.79 0.550-1.02 mg/dL Glomerular Filtration Rate Calc 71 >90 mL/min BUN/Creatinine Ratio 15.2 10.0-20.0 Serum Glucose 98 74-106 mg/dL Calcium Level 9.3 8.7-10.4 mg/dL Magnesium Level 2.3 1.6-2.6 mg/dL Total Bilirubin 0.4 0.2-1.0 mg/dL Aspartate Amino Transferase (AST) 11 L 13-40 U/L Alanine Aminotransferase (ALT) 15 7-40 U/L Alkaline Phosphatase 111 46-116 U/L B-Type Natriuretic Peptide 99.50 0-100 pg/mL Total Protein 6.1 5.7-8.2 g/dL Albumin 3.9 3.2-4.8 g/dL Thyroid Stimulating Hormone (TSH) 3.53 0.55-4.78 uIU/mL Assessment Asymptomatic bradycardia Hypertension Musculoskeletal pain Dementia with sundown syndrome Plan/Recommendation (Dr. Lan) Cardiology consulted given an intermittent sinus bradycardia rhythm in the 30s- 40s bpm overnight at rest. The patient is interacting with family at bedside with an improved hear rate in the 70s bpm. property assessment monitor reviewed with no evidence of atrioventricular blocks. She has a history of bradycardia undergoing an event monitor with no abnormal findings in the past. Avoid AV apryl blocking agents. There is no further cardiac work-up indicated at this time. Thank you for allowing us to participate in this patient's care. Please call if you have any questions or concerns. This medical document was created using an electronic medical record system with voice recognition software and computerized dictation system. Although this document has been carefully reviewed, there might still be some phonetic and typographical errors. Occasional wrong-word or ``sound-alike substitutions may have occurred due to the inherent limitations of voice recognition software. These areas are purely typographical due to imperfections of the software programs and do not reflect any compromise in the patient's medical care. Please read the chart carefully and recognize, using context, where these substi tutions have occurred. Plan discussed with: Patient, Daughter, Son, Other Date of Service: Mar 07, 2024 Billing Provider: COSTA LAN MD Cardiology Common Codes: [id number] INP/OBS CARE (High) NAPOLEON CORDERO [facility] Mar 07, 2024 10:45
[2024-03-07] MEDS: ONDANSETRON HCL 4 MG/2 ML VIAL IV PRN (11:21)
[2024-03-07] MEDS: IBUPROFEN 400 MG TAB PO SCH (14:48)
[2024-03-07] MEDS: ACETAMINOPHEN 500 MG TAB or CAP PO SCH (14:48)
[2024-03-07] MEDS ORDERED: MULTTAB99 PO (15:51)
[2024-03-07] MEDS ORDERED: IBUP1TAB4 PO (15:51)
[2024-03-07] MEDS ORDERED: ACET-1079 PO (15:51)
--- NOTE | 2024-03-07 16:06 | DVHPNRES ---
Progress Note Date Seen: Mar 07, 2024 Resident Creating Document: TWILA KLINE RESIDENT Medical Necessity Reason Pt with a Central, PICC or Fol: No Subjective Review of Systems ZHANNA LONG is an 88-year-old Azeri speaking female, poor historian with a PMH of anxiety, dementia, GERD, HTN, CKD, hiatal hernia who presented to the emergency room with a chief complaint of right-sided rib pain. Per family the patient sustained a recent mechanical fall injury where she was diagnosed with a right posterior 7th rib fracture. Per family, the patient experiences pain when taking deep breaths or feeling agitated. Patient recently underwent open reduction and internal fixation of right hip for fracture. On my assessment patient denied fever, nausea, vomiting, abdominal pain and other acute associated symptoms PMH : anxiety, dementia, GERD, HTN, CKD, hiatal hernia PSH: Right hip ORIF Family history: Reviewed, noncontributory Social history: Patient lives with the family. Denies smoking, alcohol and other drug abuse Allergies: No known allergies Patient seen and examined at the bedside. Patient reported mild improvement in pain after medication. Initially given [place] but discontinued. Currently on ibuprofen and acetaminophen. Continue pain management as needed. process improvement consultant evaluated the patient due to bradycardia, advised to avoid AV apryl blocking agents. possible DC tomorrow. Objective vital signs Vital Sign Date Time Temp Pulse Resp B/P (MAP) Pulse Ox O2 Delivery O2 Flow Rate FiO2 03/07/24 13:00 98.0 63 18 156/63 (94) 96 98.0 03/07/24 07:30 Nasal Cannula* 2 28 Total Intake and Output 03/06/24 03/06/24 03/07/24 15:00 23:00 07:00 Intake Total 100 ml Balance 100 ml medications Current Medications Medications Dose Ordered Sig/Devorah Route Start Time Stop Time Status Last Admin Dose Admin Ondansetron HCl 4 mg Q4HP PRN IV 03/06/24 16:45 03/07/24 11:21 4 MG Docusate Sodium 100 mg BIDPRN PRN PO 03/06/24 16:45 Zinc Sulfate 220 mg DAILY PO 03/07/24 10:00 03/07/24 09:23 220 MG Multivitamins 1 tab DAILY PO 03/07/24 10:00 03/07/24 09:22 1 TAB Morphine Sulfate 2 mg Q4HPRN PRN IV 03/06/24 16:45 03/07/24 00:05 2 MG Haloperidol Lactate 5 mg Q8HP PRN IM 03/06/24 19:00 Ibuprofen 400 mg TID PO 03/07/24 14:00 03/07/24 14:48 400 MG Acetaminophen 500 mg TID PO 03/07/24 14:00 03/07/24 14:48 500 MG Amlodipine Besylate 5 mg DAILY PO 03/08/24 10:00 UNV Lisinopril 20 mg DAILY PO 03/08/24 10:00 UNV Pantoprazole Sodium 40 mg DAILY@0600 PO 03/08/24 06:00 UNV Examination Pt is lying on bed General Appearance: Alert, Oriented X3, Non cooperative,mild distress HEENT: Atraumatic, Mucous membranes moist/pink Respiratory: Clear to auscultation, Normal air movement, No added sounds Cardiovascular: Regular rate, Normal S1, Normal S2, No murmurs Abdominal: Active bowel sounds, Soft, no distention, no tenderness Extremities: surgical scar at the right hip joint, tenderness and right ribcage tenderness. Skin: No Significant rash, except past surgical scars Neuro: Normal speech, sensorimotor deficits none Psych/Mental Status: Mental status NL, Mood NL Nurse was there as sharperone during examination laboratory and microbiology Laboratory Tests 03/07/24 06:10 Test 03/07/24 06:10 Range/Units Serum Glucose 98 74-106 mg/dL Microbiology Date/Time Source Procedure Growth Status 03/07/24 00:00 Nose MRSA Screen - Final Complete Labs and/or images reviewed: Labs reviewed by me, Image(s) reviewed by me Problem List/Assessment/Plan Problem List/Assessment/Plan # right posterior 7th rib fracture. # musculoskeletal pain status post mechanical fall - evident on CXR - currently on pain management # uncontrolled hypertension - continuously monitor - resumed home meds # GERD # hiatal hernia - currently on Protonix # Asymptomatic bradycardia - monitoring in telemetry - process improvement consultant advised to avoid AV apryl blocking agents and no further workup for now # Dementia with sundown syndrome - precautions to avoid delerium SCD for now Protonix Cardiac diet Reconciled home meds Goals of care discussed with the patient for more than 27 minutes: Full code status Case management discussed with Dr. Hurtado, patient denies Plan discussed with: Patient My Orders My Orders Orders - TWILA KLINE Procedure Category Date Status Time Vitamin D, 25-Hydroxy LAB 03/07/24 In Process 08:02 Vitamin B12 LAB 03/07/24 In Process 08:02 Urinalysis LAB 03/07/24 Logged 08:02 Drug Screen LAB 03/07/24 Logged 08:02 Pt Request For Service PT 03/07/24 Logged 09:32 Ibuprofen Tablet PHA 03/07/24 In Process (Motrin Tablet) 14:00 Acetaminophen Tablet PHA 03/07/24 In Process (Tylenol Tablet) 14:00 Amlodipine Tablet PHA 03/08/24 In Process (Norvasc Tablet) 10:00 Lisinopril Tablet PHA 03/08/24 In Process (Zestril Tablet) 10:00 Pantoprazole Tablet PHA 03/08/24 Logged (Protonix Tablet) 06:00 Date of Service: Mar 07, 2024 Billing Provider: YUDI HURTADO MD Common Visit Codes: [id number] INP/OBS CARE(HIGH) TWILA KLINE RESIDENT Mar 07, 2024 16:06 YUDI HURTADO MD Mar 09, 2024 23:17
[2024-03-08 05:00] VITALS: BP 152/78; PULSE 53; RESP 18; TEMP 98; O2SAT 94
[2024-03-08] MEDS: PANTOPRAZOLE 40 MG TAB PO SCH (05:23)
[2024-03-08 08:00] VITALS: PULSE 57
[2024-03-08 09:00] VITALS: BP 149/82; PULSE 64; RESP 16; TEMP 98; O2SAT 95
[2024-03-08] MEDS: LISINOPRIL 20 MG TAB PO SCH (09:09)
[2024-03-08] MEDS: amLODIPine BESYLATE 5 MG TAB PO SCH (09:10)
[2024-03-08 13:00] VITALS: BP 144/80; PULSE 67; RESP 18; TEMP 98.1; O2SAT 94
[2024-03-08] MEDS ORDERED: AMIT25TA20 PO (13:51)
[2024-03-08] MEDS ORDERED: MIRT-94 OR (13:51)
--- NOTE | 2024-03-08 15:51 | DVHPNRES ---
Progress Note Date Seen: Mar 08, 2024 Resident Creating Document: TWILA KLINE RESIDENT Medical Necessity Reason Pt with a Central, PICC or Fol: No Subjective Review of Systems ZHANNA LONG is an 88-year-old Macedonian speaking female, poor historian with a PMH of anxiety, dementia, GERD, HTN, CKD, hiatal hernia who presented to the emergency room with a chief complaint of right-sided rib pain. Patient seen and examined at the bedside. Patient reported mild improvement in pain after medication. Currently on ibuprofen and acetaminophen. Continue pain management as needed. cisco consultant evaluated the patient due to bradycardia, advised to avoid AV apryl blocking agents. Pending SNF placement. Patient reports: No new complaints Changes from previous H/P or p: No Changes Objective vital signs Vital Sign Date Time Temp Pulse Resp B/P (MAP) Pulse Ox O2 Delivery O2 Flow Rate FiO2 03/08/24 09:41 51 18 155/64 03/08/24 09:00 98.0 95 98.0 03/08/24 08:10 Nasal Cannula* 2 28 Total Intake and Output 03/07/24 03/07/24 03/08/24 15:00 23:00 07:00 Intake Total 500 ml 250 ml Balance 500 ml 250 ml medications Current Medications Medications Dose Ordered Sig/Devorah Route Start Time Stop Time Status Last Admin Dose Admin Ondansetron HCl 4 mg Q4HP PRN IV 03/06/24 16:45 03/07/24 11:21 4 MG Docusate Sodium 100 mg BIDPRN PRN PO 03/06/24 16:45 Zinc Sulfate 220 mg DAILY PO 03/07/24 10:00 03/08/24 09:04 220 MG Multivitamins 1 tab DAILY PO 03/07/24 10:00 03/08/24 09:04 1 TAB Morphine Sulfate 2 mg Q4HPRN PRN IV 03/06/24 16:45 03/08/24 09:11 2 MG Haloperidol Lactate 5 mg Q8HP PRN IM 03/06/24 19:00 Ibuprofen 400 mg TID PO 03/07/24 14:00 03/08/24 14:04 400 MG Acetaminophen 500 mg TID PO 03/07/24 14:00 03/08/24 14:03 500 MG Amlodipine Besylate 5 mg DAILY PO 03/08/24 10:00 03/08/24 09:10 5 MG Lisinopril 20 mg DAILY PO 03/08/24 10:00 03/08/24 09:09 20 MG Pantoprazole Sodium 40 mg DAILY@0630 PO 03/08/24 06:30 03/08/24 05:23 40 MG Examination Pt is lying on bed General Appearance: Alert, Oriented X3, Non cooperative,mild distress HEENT: Atraumatic, Mucous membranes moist/pink Respiratory: Clear to auscultation, Normal air movement, No added sounds Cardiovascular: Regular rate, Normal S1, Normal S2, No murmurs Abdominal: Active bowel sounds, Soft, no distention, no tenderness Extremities: surgical scar at the right hip joint, tenderness and right ribcage tenderness. Skin: No Significant rash, except past surgical scars Neuro: Normal speech, sensorimotor deficits none Psych/Mental Status: Mental status NL, Mood NL Nurse was there as sharperone during examination laboratory and microbiology Laboratory Tests 03/07/24 06:10 Test 03/07/24 06:10 Range/Units Serum Glucose 98 74-106 mg/dL Microbiology Date/Time Source Procedure Growth Status 03/07/24 00:00 Nose MRSA Screen - Final Complete Labs and/or images reviewed: Labs reviewed by me, Image(s) reviewed by me Problem List/Assessment/Plan Problem List/Assessment/Plan # right posterior 7th rib fracture. # musculoskeletal pain status post mechanical fall - evident on CXR - currently on pain management # uncontrolled hypertension - continuously monitor - resumed home meds # GERD # hiatal hernia - currently on Protonix # Asymptomatic bradycardia - monitoring in telemetry - cisco consultant advised to avoid AV apryl blocking agents and no further workup for now # Dementia with sundown syndrome - precautions to avoid delerium SCD for now Protonix Cardiac diet Reconciled home meds Goals of care discussed with the patient and family for more than 27 minutes: Full code status Case management discussed with Dr. Hurtado, patient, family and Nurse. Pending SNF placement Plan discussed with: Patient My Orders My Orders Orders - TWILA KLINE RESIDENT Procedure Category Date Status Time Amlodipine Tablet PHA 03/08/24 In Process (Norvasc Tablet) 10:00 Lisinopril Tablet PHA 03/08/24 In Process (Zestril Tablet) 10:00 Pantoprazole Tablet PHA 03/08/24 In Process (Protonix Tablet) 06:30 * Equine Intern CONS 03/07/24 Transmitted Consult Date of Service: Mar 08, 2024 Billing Provider: YUDI HURTADO MD Common Visit Codes: [id number] INP/OBS CARE(HIGH) TWILA KLINE RESIDENT Mar 08, 2024 15:51 YUDI HURTADO MD Mar 09, 2024 23:17
[2024-03-08 17:07] VITALS: BP 140/50; PULSE 51; RESP 16; TEMP 98; O2SAT 95
[2024-03-08 22:00] VITALS: BP 137/77; PULSE 42; RESP 16; TEMP 98.1; O2SAT 94
[2024-03-09] VITALS (8 sets, daily range): BP systolic 112–142; BP diastolic 45–69; PULSE 40–77; RESP 16–18; TEMP 98.1–99; O2SAT 93–98
--- NOTE | 2024-03-09 09:32 | DVHPNRES ---
Progress Note Date Seen: Mar 09, 2024 Resident Creating Document: TWILA KLINE RESIDENT Medical Necessity Reason Pt with a Central, PICC or Fol: No Subjective Review of Systems ZHANNA LONG is an 88-year-old Italian speaking female, poor historian with a PMH of anxiety, dementia, GERD, HTN, CKD, hiatal hernia who presented to the emergency room with a chief complaint of right-sided rib pain. Patient seen and examined at the bedside. Patient reported mild improvement in pain after medication. Currently on ibuprofen and acetaminophen. Continue pain management as needed. forestry consultant evaluated the patient due to bradycardia, advised to avoid AV apryl blocking agents. Pending SNF placement. Patient reports: No new complaints, Feels better Objective vital signs Vital Sign Date Time Temp Pulse Resp B/P (MAP) Pulse Ox O2 Delivery O2 Flow Rate FiO2 03/09/24 08:49 98.6 63 18 133/45 (74) 97 98.6 03/08/24 20:00 Nasal Cannula* 2 28 Total Intake and Output 03/08/24 03/08/24 03/09/24 15:00 23:00 07:00 Intake Total 540 ml 400 ml Balance 540 ml 400 ml medications Current Medications Medications Dose Ordered Sig/Devorah Route Start Time Stop Time Status Last Admin Dose Admin Ondansetron HCl 4 mg Q4HP PRN IV 03/06/24 16:45 03/07/24 11:21 4 MG Docusate Sodium 100 mg BIDPRN PRN PO 03/06/24 16:45 Zinc Sulfate 220 mg DAILY PO 03/07/24 10:00 03/08/24 09:04 220 MG Multivitamins 1 tab DAILY PO 03/07/24 10:00 03/08/24 09:04 1 TAB Morphine Sulfate 2 mg Q4HPRN PRN IV 03/06/24 16:45 03/08/24 09:11 2 MG Haloperidol Lactate 5 mg Q8HP PRN IM 03/06/24 19:00 Ibuprofen 400 mg TID PO 03/07/24 14:00 03/09/24 05:36 400 MG Acetaminophen 500 mg TID PO 03/07/24 14:00 03/09/24 05:36 500 MG Amlodipine Besylate 5 mg DAILY PO 03/08/24 10:00 03/08/24 09:10 5 MG Lisinopril 20 mg DAILY PO 03/08/24 10:00 03/08/24 09:09 20 MG Pantoprazole Sodium 40 mg DAILY@0630 PO 03/08/24 06:30 03/09/24 05:36 40 MG Examination Pt is lying on bed General Appearance: Alert, Oriented X3, Non cooperative,mild distress HEENT: Atraumatic, Mucous membranes moist/pink Respiratory: Clear to auscultation, Normal air movement, No added sounds Cardiovascular: Regular rate, Normal S1, Normal S2, No murmurs Abdominal: Active bowel sounds, Soft, no distention, no tenderness Extremities: surgical scar at the right hip joint, tenderness and right ribcage tenderness. Skin: No Significant rash, except past surgical scars Neuro: Normal speech, sensorimotor deficits none Psych/Mental Status: Mental status NL, Mood NL Nurse was there as sharperone during examination laboratory and microbiology Laboratory Tests 03/07/24 06:10 Test 03/07/24 06:10 Range/Units Serum Glucose 98 74-106 mg/dL Microbiology Date/Time Source Procedure Growth Status 03/07/24 00:00 Nose MRSA Screen - Final Complete Labs and/or images reviewed: Labs reviewed by me, Image(s) reviewed by me Problem List/Assessment/Plan Problem List/Assessment/Plan # right posterior 7th rib fracture. # musculoskeletal pain status post mechanical fall - evident on CXR - currently on pain management # uncontrolled hypertension - continuously monitor - resumed home meds # GERD # hiatal hernia - currently on Protonix # Asymptomatic bradycardia - monitoring in telemetry - forestry consultant advised to avoid AV apryl blocking agents and no further workup for now # Dementia with sundown syndrome - precautions to avoid delerium SCD for now Protonix Cardiac diet Reconciled home meds Goals of care discussed with the patient and family for more than 27 minutes: Full code status Case management discussed with Dr. Chavez, patient, family and Nurse. Pending SNF placement Plan discussed with: Patient My Orders My Orders Orders - TWILA KLINE Procedure Category Date Status Time * Outside Production Inspector CONS 03/08/24 Transmitted Consult 15:52 Date of Service: Mar 09, 2024 Billing Provider: JOSE A CHAVEZ MD Common Visit Codes: [id number] INP/OBS CARE(HIGH) TWILA KLINE RESIDENT Mar 09, 2024 09:32 JOSE A CHAVEZ MD Mar 09, 2024 21:59
[2024-03-10] VITALS (8 sets, daily range): BP systolic 111–152; BP diastolic 40–72; PULSE 32–61; RESP 16–18; TEMP 97.9–98.7; O2SAT 94–97
[2024-03-10] MEDS: DOCUSATE SOD 100 MG CAP PO PRN (09:43)
--- NOTE | 2024-03-10 20:33 | DVHPNRES ---
Progress Note Date Seen: Mar 10, 2024 Resident Creating Document: IZZY URBANO RESIDENT Medical Necessity Reason Pt with a Central, PICC or Fol: No Subjective Review of Systems Juliet Arenas is an 88-year-old [place] speaking female patient who is a poor historian, who presents to the ED with chief complaint of stabbing right-sided chest pain which increases with movement and reproduces with palpation, triggered after mechanical fall with no loss of consciousness. Patient was recently diagnosed with right hip fracture and right rib fracture after mechanical fall, status post right total hip replacement. Family brought patient to the ED since they could not manage her pain and her rehabilitation, requiring placement to SNF. Could not obtain review of systems due to clinical status (patient has dementia) Past medical history: Hypertension, anxiety, dementia, GERD, CKD, hiatal hernia Surgical history: Right total hip replacement Family history: Noncontributory Social history: Lives with son and [id number] who take care of patient. Denies current tobacco, alcohol and other drug abuse Allergies: Denies Home medication: Per EMR. Patient seen and examined at the bedside. Patient currently presents less chest pain then admission. She is currently completing physical therapy sessions Objective vital signs Vital Sign Date Time Temp Pulse Resp B/P (MAP) Pulse Ox O2 Delivery O2 Flow Rate FiO2 03/10/24 20:00 53 18 96 Nasal Cannula* 2 28 03/10/24 17:00 98.5 152/67 (95) 98.5 Total Intake and Output 03/09/24 03/09/24 03/10/24 15:00 23:00 07:00 Intake Total 600 ml 340 ml Balance 600 ml 340 ml medications Current Medications Medications Dose Ordered Sig/Devorah Route Start Time Stop Time Status Last Admin Dose Admin Ondansetron HCl 4 mg Q4HP PRN IV 03/06/24 16:45 03/07/24 11:21 4 MG Docusate Sodium 100 mg BIDPRN PRN PO 03/06/24 16:45 03/10/24 09:43 100 MG Zinc Sulfate 220 mg DAILY PO 03/07/24 10:00 03/10/24 09:43 220 MG Multivitamins 1 tab DAILY PO 03/07/24 10:00 03/10/24 09:43 1 TAB Morphine Sulfate 2 mg Q4HPRN PRN IV 03/06/24 16:45 03/08/24 09:11 2 MG Haloperidol Lactate 5 mg Q8HP PRN IM 03/06/24 19:00 Ibuprofen 400 mg TID PO 03/07/24 14:00 03/10/24 13:38 400 MG Acetaminophen 500 mg TID PO 03/07/24 14:00 03/10/24 13:38 500 MG Amlodipine Besylate 5 mg DAILY PO 03/08/24 10:00 03/10/24 09:43 5 MG Lisinopril 20 mg DAILY PO 03/08/24 10:00 03/10/24 09:43 20 MG Pantoprazole Sodium 40 mg DAILY@0630 PO 03/08/24 06:30 03/10/24 05:23 40 MG Examination Patient lying in bed, in no acute distress General: [place], afebrile, mucosae are moist Cardiovascular: Normal S1 and S2. No murmurs, gallops or rubs Respiratory: Normal ventilation mechanics. Clear lung sounds on auscultation Abdomen: Soft, nontender, no organomegaly, normal bowel sounds MSK/skin: Mobilizes 4 limbs. Skin is dry and warm. Mobilizes right leg less than left. Surgical wound with no signs of infection. Neurological: Oriented in 1 spheres (only in person). No motor no sensitive deficits. Pupils are isocoric and reactive laboratory and microbiology Laboratory Tests 03/07/24 06:10 Test 03/07/24 06:10 Range/Units Serum Glucose 98 74-106 mg/dL Microbiology Date/Time Source Procedure Growth Status 03/07/24 00:00 Nose MRSA Screen - Final Complete Problem List/Assessment/Plan Problem List/Assessment/Plan Right posterior 7th rib fracture Optimize pain management Observed in chest x-ray Musculoskeletal pain status post mechanical fall Optimize pain management Hypertension Currently on antihypertensive medication and pain management (amlodipine, lisinopril) GERD Hiatal hernia Currently on Protonix Asymptomatic bradycardia Monitoring in telemetry Cardiology consulted: Advice to avoid AV apryl blocking agents and no further workup for now Dementia with sundown syndrome Precautions to avoid delirium History of right hip fracture status postop Indicated physical therapy sessions Planning on SNF placement for rehabilitation Goals of care discussed with family for over 18 minutes: Full code status Case management discussed with Dr. Chavez, patient, family and Nurses: Pending SNF placement for rehabilitation Plan discussed with: Patient, Other (Nurses and daugther in law) Date of Service: Mar 10, 2024 Billing Provider: JOSE A CHAVEZ MD Common Visit Codes: [id number] INP/OBS CARE(HIGH) IZZY URBANO RESIDENT Mar 10, 2024 20:33 JOSE A CHAVEZ MD Mar 10, 2024 23:39
[2024-03-10] MEDS: ENOXAPARIN SOD 40 MG/0.4 ML SYRINGE SC ONE (21:11)
[2024-03-11 05:00] VITALS: BP 125/68; PULSE 42; RESP 18; TEMP 98.4; O2SAT 97
[2024-03-11 07:11] LABS: Basophils # (auto) 0 10 ^3/uL (0-0.2); Basophils % (auto) 0.7 % (0.0-2.0); Eosinophils # (auto) 0.2 10 ^3/uL (0-0.8); Eosinophils % (auto) 2.9 % (0.0-7.0); Hematocrit 37.4 % (36.0-46.0); Hemoglobin 12.9 g/dL (12.2-16.2); Lymphocytes # (auto) 1.9 10 ^3/uL (0.4-5.4); Lymphocytes % (auto) 34.1 % (10.0-50.0); Mean Corpuscular Hemoglobin 31.4 pg (28.0-32.0); Mean Corpuscular Hgb Conc. 34.4 g/dL (32.0-36.0); Mean Corpuscular Volume 91.2 fL (80.0-100.0); Monocytes # (auto) 0.5 10 ^3/uL (0-1.3); Monocytes % (auto) 9.3 % (0.0-12.0); Nucleated Red Blood Cells % 0.3 %; Platelet Count (auto) 243 10^3/uL (140-450); White Blood Cell 5.6 10^3/uL (4.4-10.8)
[2024-03-11 07:25] LABS: Anion Gap 8 (5-15); Carbon Dioxide 25 mmol/L (20-31); Chloride 105 mmol/L (98-107); Sodium 138 mmol/L (136-145)
[2024-03-11 07:26] LABS: Calcium 9.5 mg/dL (8.7-10.4)
[2024-03-11 07:31] LABS: BUN/Creatinine Ratio 16.5 (10.0-20.0); Blood Urea Nitrogen 15 mg/dL (9-23); Glucose 91 mg/dL (74-106)
[2024-03-11 08:00] VITALS: BP 122/44; PULSE 40; RESP 15; RESP 16; TEMP 97.5; O2SAT 93; O2SAT 96
[2024-03-11] MEDS: ENOXAPARIN SOD 40 MG/0.4 ML SYRINGE SC SCH (09:32)
[2024-03-11 13:00] VITALS: BP 153/62; PULSE 54; RESP 17; TEMP 97.2; O2SAT 93
--- NOTE | 2024-03-11 13:59 | DVHDSRES ---
Discharge Summary Date of Admission Resident Creating Document: TWILA KLINE RESIDENT Mar 06, 2024 at 16:40 Date of Discharge: Mar 11, 2024 Admitting Diagnosis Right-sided rib cage pain Labs/Diagnostic Data: Laboratory Results Test 03/11/24 06:23 03/07/24 09:39 03/07/24 06:10 White Blood Count 5.6 10^3/uL (4.4-10.8) Red Blood Count 4.10 10^6/uL (4.0-5.20) Hemoglobin 12.9 g/dL (12.2-16.2) Hematocrit 37.4 % (36.0-46.0) Mean Corpuscular Volume 91.2 fL (80.0-100.0) Mean Corpuscular Hemoglobin 31.4 pg (28.0-32.0) Mean Corpuscular Hemoglobin Concent 34.4 g/dL (32.0-36.0) Red Cell Distribution Width 13.0 % (11.8-14.3) Platelet Count 243 10^3/uL (140-450) Mean Platelet Volume 8.3 fL (6.9-10.8) Neutrophils (%) (Auto) 53.0 % (37.0-80.0) Lymphocytes (%) (Auto) 34.1 % (10.0-50.0) Monocytes (%) (Auto) 9.3 % (0.0-12.0) Eosinophils (%) (Auto) 2.9 % (0.0-7.0) Basophils (%) (Auto) 0.7 % (0.0-2.0) Neutrophils # (Auto) 3.0 10 ^3/uL (1.6-8.6) Lymphocytes # (Auto) 1.9 10 ^3/uL (0.4-5.4) Monocytes # (Auto) 0.5 10 ^3/uL (0-1.3) Eosinophils # (Auto) 0.2 10 ^3/uL (0-0.8) Basophils # (Auto) 0 10 ^3/uL (0-0.2) Nucleated Red Blood Cells 0.3 % Sodium Level 138 mmol/L (136-145) Potassium Level 4.0 mmol/L (3.5-5.1) Chloride Level 105 mmol/L (98-107) Carbon Dioxide Level 25 mmol/L (20-31) Anion Gap 8 (5-15) Blood Urea Nitrogen 15 mg/dL (9-23) Creatinine 0.91 mg/dL (0.550-1.02) Glomerular Filtration Rate Calc 60 mL/min (>90) BUN/Creatinine Ratio 16.5 (10.0-20.0) Serum Glucose 91 mg/dL (74-106) Calcium Level 9.5 mg/dL (8.7-10.4) Prothrombin Time 10.6 sec (9.3-11.8) Prothrombin Time INR 1.00 (0.9-1.15) Activated Partial Thromboplast Time 29.8 SEC (24.5-34.5) Hemoglobin A1c 5.3 % A1C (<5.7) Magnesium Level 2.3 mg/dL (1.6-2.6) Total Bilirubin 0.4 mg/dL (0.2-1.0) Aspartate Amino Transferase (AST) 11 U/L (13-40) Alanine Aminotransferase (ALT) 15 U/L (7-40) Alkaline Phosphatase 111 U/L (46-116) B-Type Natriuretic Peptide 99.50 pg/mL (0-100) Total Protein 6.1 g/dL (5.7-8.2) Albumin 3.9 g/dL (3.2-4.8) Vitamin B12 Level 301 pg/mL (211-911) Thyroid Stimulating Hormone (TSH) 3.53 uIU/mL (0.55-4.78) Other Laboratory Tests 03/11/24 06:23 Brief Hx & Hospital Course: ZHANNA LONG is an 88-year-old Italian speaking female, poor historian with a PMH of anxiety, dementia, GERD, HTN, CKD, hiatal hernia who presented to the emergency room with a chief complaint of right-sided rib pain. Per family the patient sustained a recent mechanical fall injury where she was diagnosed with a right posterior 7th rib fracture. Per family, the patient experiences pain when taking deep breaths or feeling agitated. Patient recently underwent open reduction and internal fixation of right hip for fracture. On my assessment patient denied fever, nausea, vomiting, abdominal pain and other acute associated symptoms. itially given [place] but discontinued and given ibuprofen and acetaminophen. pain management as needed. cardiology consultants evaluated the patient due to bradycardia, advised to avoid AV apryl blocking agents. right hip x-ray showed status post open reduction internal fixation of a proximal right femoral fracture bony alignment appears normal internal fixation device appears intact and normal alignment. Patient condition was improved, hemodynamically stable and in condition to be discharged to skilled nurse facility for rehabilitation, plan discussed with the patient and family and agreed to the plan. Patient was advised about healthy lifestyle habits including diet and exercise and to follow up with PCP. Pt is lying on bed General Appearance: Alert, Oriented X3, Non cooperative,mild distress HEENT: Atraumatic, Mucous membranes moist/pink Respiratory: Clear to auscultation, Normal air movement, No added sounds Cardiovascular: Regular rate, Normal S1, Normal S2, No murmurs Abdominal: Active bowel sounds, Soft, no distention, no tenderness Extremities: surgical scar at the right hip joint, tenderness and right ribcage tenderness. Skin: No Significant rash, except past surgical scars Neuro: Normal speech, sensorimotor deficits none Psych/Mental Status: Mental status NL, Mood NL Nurse was there as sharperone during examination Operations or Procedures CHEST RADIOGRAPH Indication: PAIN Tchnique: Single frontal view of the chest was obtained Comparison: XY CHEST XRAY 1 VIEW on DOS: 03/01/24, XY CHEST XRAY 1 VIEW on DOS: 03/01/24 FINDINGS: Lines and Tubes: None Lungs: No focal consolidation. Pleura: No effusion. No pneumothorax. Cardiomediastinal contours: Mild cardiomegaly. Bones: No acute osseous abnormality. IMPRESSION: No acute cardiopulmonary disease. TECHNIQUE: 3 radiographic views of the right hip were obtained. FINDINGS/IMPRESSION: Patient is status post open reduction internal fixation of a proximal right femoral fracture bony alignment appears normal internal fixation device appears intact and normal alignment. The visualized joint space is well maintained. The alignment is anatomical. There is no radiopaque foreign body. Condition at Discharge: Stable Final Diagnosis/Problems List # right posterior 7th rib fracture. # musculoskeletal pain status post mechanical fall # uncontrolled hypertension # GERD # hiatal hernia # Asymptomatic bradycardia # Dementia with sundown syndrome # istory of right hip fracture status postop Discharge Disposition: Halfway Facility Discharge Instruct/Medications Diet: Consistent carbohydrate, Cardiac 2g Na,low cholest Activity: No Restrictions, As Tolerated Follow Up/Referral: PCP Medications: Per EMR Discharge Statement: "Patient was advised to return to the ER or call 911 if any headaches, dizziness, shortness of breath, chest pain, abdominal pain, bleeding, fevers, or worsening of medical condition. Patient was counseled about treatment plan, medications, possible side effects, patientverbalized understanding. All questions were answered to the best of my ability. This discharge took greater then 30 minutes in planning, reviewing documentation, counseling the patient, and discussing with other team members." ASSESSMENT ASSESSMENT Assessment Right posterior 7th rib fracture Musculoskeletal pain status post mechanical fall Date of Service: Mar 11, 2024 Billing Provider: GABBY CARTAGENA MD Common Visit Codes: [id number] DISCH DAY >30min TWILA KLINE RESIDENT Mar 11, 2024 13:59 GABBY CARTAGENA MD Mar 16, 2024 19:03
[2024-03-11 17:00] VITALS: BP 156/73; PULSE 60; RESP 16; TEMP 98.2; O2SAT 95
[2024-03-11 20:00] VITALS: RESP 16
[2024-03-11 22:00] VITALS: BP 146/75; PULSE 51; RESP 17; TEMP 98.6; O2SAT 94
[2024-03-12 01:00] VITALS: BP 125/62; PULSE 43; RESP 18; TEMP 98.1; O2SAT 94
[2024-03-12 05:00] VITALS: BP 141/65; PULSE 45; RESP 16; TEMP 97.8; O2SAT 95
[2024-03-12 08:00] VITALS: PULSE 57; RESP 19
[2024-03-12 08:53] VITALS: BP 144/42; PULSE 49; RESP 16; TEMP 98.2; O2SAT 95
[2024-03-12 12:54] VITALS: BP 169/58; PULSE 54; RESP 19; TEMP 98.1; O2SAT 96
--- NOTE | 2024-03-12 14:41 | DVHPNRES ---
Progress Note Date Seen: Mar 12, 2024 Resident Creating Document: TWILA KLINE RESIDENT Medical Necessity Reason Pt with a Central, PICC or Fol: No Subjective Review of Systems ZHANNA OLNG is an 88-year-old Welsh speaking female, poor historian with a PMH of anxiety, dementia, GERD, HTN, CKD, hiatal hernia who presented to the emergency room with a chief complaint of right-sided rib pain. Patient seen and examined at the bedside. Patient reported mild improvement in pain after medication. Pending discharge due to sniff placement. Patient likely discharge in to SNF in next 12 hours. Patient reports: No new complaints, Feels better Objective vital signs Vital Sign Date Time Temp Pulse Resp B/P (MAP) Pulse Ox O2 Delivery O2 Flow Rate FiO2 03/12/24 12:54 98.1 54 19 169/58 (95) 96 98.1 03/12/24 08:00 Room Air* 0 21 Total Intake and Output 03/11/24 03/11/24 03/12/24 15:00 23:00 07:00 Intake Total 550 ml 380 ml Balance 550 ml 380 ml medications Current Medications Medications Dose Ordered Sig/Devorah Route Start Time Stop Time Status Last Admin Dose Admin Ondansetron HCl 4 mg Q4HP PRN IV 03/06/24 16:45 03/07/24 11:21 4 MG Docusate Sodium 100 mg BIDPRN PRN PO 03/06/24 16:45 03/10/24 09:43 100 MG Zinc Sulfate 220 mg DAILY PO 03/07/24 10:00 03/12/24 09:09 220 MG Multivitamins 1 tab DAILY PO 03/07/24 10:00 03/12/24 09:12 1 TAB Morphine Sulfate 2 mg Q4HPRN PRN IV 03/06/24 16:45 03/08/24 09:11 2 MG Haloperidol Lactate 5 mg Q8HP PRN IM 03/06/24 19:00 Ibuprofen 400 mg TID PO 03/07/24 14:00 03/12/24 14:00 400 MG Acetaminophen 500 mg TID PO 03/07/24 14:00 03/12/24 14:00 500 MG Amlodipine Besylate 5 mg DAILY PO 03/08/24 10:00 03/10/24 09:43 5 MG Lisinopril 20 mg DAILY PO 03/08/24 10:00 122/24 09:32 20 MG Pantoprazole Sodium 40 mg DAILY@0630 PO 03/08/24 06:30 03/12/24 06:20 40 MG Enoxaparin Sodium 40 mg DAILY SC 03/11/24 10:00 03/12/24 09:09 40 MG Examination Pt is lying on bed General Appearance: Alert, Oriented X3, Non cooperative,mild distress HEENT: Atraumatic, Mucous membranes moist/pink Respiratory: Clear to auscultation, Normal air movement, No added sounds Cardiovascular: Regular rate, Normal S1, Normal S2, No murmurs Abdominal: Active bowel sounds, Soft, no distention, no tenderness Extremities: surgical scar at the right hip joint, tenderness and right ribcage tenderness. Skin: No Significant rash, except past surgical scars Neuro: Normal speech, sensorimotor deficits none Psych/Mental Status: Mental status NL, Mood NL Nurse was there as sharperone during examination laboratory and microbiology Laboratory Tests 03/11/24 06:23 Test 03/11/24 06:23 Range/Units Serum Glucose 91 74-106 mg/dL Microbiology Date/Time Source Procedure Growth Status 03/07/24 00:00 Nose MRSA Screen - Final Complete Labs and/or images reviewed: Labs reviewed by me, Image(s) reviewed by me Problem List/Assessment/Plan Problem List/Assessment/Plan # right posterior 7th rib fracture. # musculoskeletal pain status post mechanical fall - evident on CXR - currently on pain management # uncontrolled hypertension - continuously monitor - resumed home meds # GERD # hiatal hernia - currently on Protonix # Asymptomatic bradycardia - monitoring in telemetry - health care consultant advised to avoid AV apryl blocking agents and no further workup for now # Dementia with sundown syndrome - precautions to avoid delerium SCD for now Protonix Cardiac diet Reconciled home meds Goals of care discussed with the patient and family for more than 27 minutes: Full code status Case management discussed with Dr. Cartagena, patient, family and Nurse. Pending discharge due to sniff placement. Patient likely discharge in to SNF in next 12 hours. Plan discussed with: Patient Date of Service: Mar 12, 2024 Billing Provider: GABBY CARTAGENA MD Common Visit Codes: [id number] INP/OBS CARE(HIGH) TWILA KLINE RESIDENT Mar 12, 2024 14:41 GABBY CARTAGENA MD Mar 16, 2024 19:03
[2024-03-12 15:00] VITALS: BP 140/44; PULSE 47; RESP 19; TEMP 98; O2SAT 96
== END 2024-03-12 15:00 | DRG 351 ==
LOC: EDBD 14:05 → ER 14:05 → OVERFLOW 16:40 → TELE 18:57 → TELE-WESTW 18:59
PROVIDERS: ADMIT Internal Medicine Geriatric Medicine; ATTEND Internal Medicine Geriatric Medicine
DX: M79.18 Myalgia, other site (principal); F05 Delirium due to known physiological condition; R00.1 Bradycardia, unspecified; M25.551 Pain in right hip; F03.94 Unspecified dementia, unspecified severity, with anxiety; K21.9 Gastro-esophageal reflux disease without esophagitis; N18.9 Chronic kidney disease, unspecified; K44.9 Diaphragmatic hernia without obstruction or gangrene; I12.9 Hypertensive chronic kidney disease with stage 1 through stage 4 chronic kidney disease, or unspecified chronic kidney disease; F03.90 Unspecified dementia, unspecified severity, without behavioral disturbance, psychotic disturbance, mood disturbance, and anxiety; Z79.899 Other long term (current) drug therapy; X58.XXXD Exposure to other specified factors, subsequent encounter; S22.31XG Fracture of one rib, right side, subsequent encounter for fracture with delayed healing
CPT/HCPCS: 36415; 71045; 73502; 80048; 80053; 82306; 82607; 83036; 83735; 83880; 84443; 85025; 85610; 85730; 87081; 97110; 97116; 97163; G0378; J2405